=== PATIENT | female | born 1960 | race Caucasian/White ===

== ENCOUNTER 2020-02-18 08:05 | Outpatient (REF) | payer MEDICAID, SELFPAY | END 2020-02-18 08:06 | disposition home or self-care (01) | LOC: HO.LHD 08:05 | PROVIDERS: Visit Provider Internal Medicine | DX: Z13.89 Encounter for screening for other disorder (principal) ==

== ENCOUNTER 2022-01-06 15:55 | Inpatient (IN) | payer MEDICAID, SELFPAY ==
--- NOTE | ~2022-01-06 | CT_ITS ---
EXAMINATION: CT HEAD WITH CONTRAST CLINICAL INFORMATION: Rule out metastatic disease. COMPARISON: Head CT from 08/24/2012. TECHNIQUE: Contiguous axial imaging was performed from the skullbase to vertex following the intravenous administration of 80 mL Omnipaque 350. This CT examination was performed using dose optimization techniques as appropriate, variously including the following: *Automated exposure control *Adjustment of mA and/or kV according to patient size (this includes techniques or standardized protocols for targeted exams where dose is matched to indication/reason for exam; i.e. extremities or head) *Use of iterative reconstruction technique DLP: 923 mGy-cm. FINDINGS: There is no evidence of acute intracranial hemorrhage or territorial infarction. No abnormal mass effect or midline shift is seen. High to white matter differentiation is well preserved. No extra-axial fluid collections are identified. There is no abnormal enhancement. Generalized parenchymal volume loss evident with concordant ex vacuo prominence of the ventricles. There is no abnormal attenuation within the brain parenchyma. The osseous structures and soft tissues are normal. The mastoid air cells and visualized portions of the paranasal sinuses are well aerated. CT/CT head/brain w IV con IMPRESSION: No acute intracranial pathology. No CT findings of intracranial metastatic disease.
--- NOTE | ~2022-01-06 | XR_ITS ---
EXAMINATION: XR chest 1V CLINICAL INFORMATION: Reason for Exam SOB COMPARISON: Prior chest x-ray 01/03/2012 TECHNIQUE: XR chest 1V Tubes and lines: None Lungs and pleura: Newly developed opacification over the right suprahilar region/lung apex concerning for possible mass, fluid consolidation and/or atelectasis. Heart and mediastinum: The mediastinum is within normal limits.. Bones/soft tissue: Skeletal structures included are normal for patient's age. XR/XR chest 1V IMPRESSION: Opacification over the right upper lobe concerning for mass, consolidation atelectasis and pleural effusion. Would recommend correlation with follow-up contrast enhanced CT scan chest.
--- NOTE | ~2022-01-06 | CT_ITS ---
EXAMINATION: CT CHEST ANGIOGRAM PE PROTOCOL CLINICAL INFORMATION: , Reason for Exam SOB, tachycardia COMPARISON: None TECHNIQUE: Volumetric imaging was performed through the chest. Reformatted coronal and sagittal imaging was performed. 3-D MIP images performed at a dedicated separate workstation. This CT examination was performed using dose optimization techniques as appropriate, variously including the following: *Automated exposure control *Adjustment of mA and/or kV according to patient size (this includes techniques or standardized protocols for targeted exams where dose is matched to indication/reason for exam; i.e. extremities or head) *Use of iterative reconstruction technique CONTRAST: 65 mL Omnipaque 350 injected DLP: 212 FINDINGS: PULMONARY ARTERIES: There is proper opacification of the pulmonary artery and its main branches. No CT evidence of pulmonary emboli. LINES/TUBES: None LUNGS: There is delaney lobar pulmonary emphysema. There is a right suprahilar mass compressing on the right upper lobe bronchus, atelectasis of right upper lobe consolidation roughly 7.4 x 4.4 cm concerning for lung mass lesion with peripheral atelectasis, extend from the right hilum to the pleural surface and right lung apex. Further investigation of which is warranted, this would be amenable for transbronchial biopsy. Adjacent infiltrates in the right upper lobe and patchy interstitial infiltrate right lower lobe could be superimposed infection pneumonia versus lymphangitic spread. Left lung is relatively spared. PLEURA: There is no significant pleural effusion. MEDIASTINUM AND MARY: The visualized thyroid gland is unremarkable. Enlarged mediastinal pretracheal and subcarinal lymph nodes. Right hilar adenopathy. Left hilum is clear. VESSELS: Thoracic aorta is normal in size. HEART AND PERICARDIUM: Heart is normal in size. There is no pericardial effusion. There are coronary calcifications. CHEST WALL, LOWER NECK, SURROUNDING SOFT TISSUES: Normal VISUALIZED ABDOMEN: Unremarkable BONES: The visualized bony thorax is within normal limits. CT/CT angio chest PE protocol IMPRESSION: 1. No CT evidence of pulmonary emboli. 2. Right parahilar mass, compressing on the adjacent bronchus causing atelectasis of right upper lobe. The consolidation extending from the right hilum to the pleural surface right lung apex. This is suspicious for underlying neoplasm, given its central position, would be amenable for transbronchial biopsy for definitive diagnosis, PET/CT could be utilized.. 3. Adjacent right hilar and mediastinal lymphadenopathy. 4. Adjacent right upper and lower lobe patchy infiltrates, could be superimposed infection pneumonia versus lymphangitic spread. 5. Diffuse moderate to severe delaney lobar pulmonary disease edema. (Referring physician staff is being called, to be alerted of the above findings and recommendations.) KP
--- NOTE | ~2022-01-06 | CT_ITS ---
EXAMINATION: CT ABDOMEN AND PELVIS WITH CONTRAST CLINICAL INFORMATION: Question of metastatic disease COMPARISON: CT angiogram chest 01/07/2020 which demonstrated a right parahilar mass CT abdomen 12/09/2008 TECHNIQUE: Multidetector volumetric images were obtained from the superior aspect of the liver through the pubic symphysis following administration 85 mL of Omnipaque 350 intravenous contrast. Sagittal and coronal reformatted images were obtained on the technologist's workstation. Oral contrast: No This CT examination was performed using dose optimization techniques as appropriate, variously including the following: *Automated exposure control *Adjustment of mA and/or kV according to patient size (this includes techniques or standardized protocols for targeted exams where dose is matched to indication/reason for exam; i.e. extremities or head) *Use of iterative reconstruction technique DLP: 250 mGy-cm FINDINGS: LUNG BASES: There is worsening of right lower lobe consolidation LIVER, GALLBLADDER, AND BILIARY TREE: The liver is enlarged measuring 21 cm in greatest cephalocaudad dimension. No focal hepatic lesion or biliary ductal dilatation is present. The gallbladder is unremarkable with no evidence of radiopaque gallstones, gallbladder wall thickening, or obvious pericholecystic inflammatory changes. PANCREAS: Unremarkable. SPLEEN: Unremarkable. ADRENAL GLANDS: Unremarkable. KIDNEYS AND URETERS: The kidneys are normal in size, shape, and attenuation. Water density cortical hypodensities seen in the mid left kidney consistent with a tiny Bosniak class I renal cyst. No further imaging or follow-up is needed. No solid renal masses. No hydronephrosis, hydroureter, or calculi seen. No perinephric stranding. BLADDER: Unremarkable. Bilateral ureteral jets were noted. GASTROINTESTINAL TRACT: The small and large bowel are unremarkable. The appendix is unremarkable. ABDOMINAL WALL: No significant hernia is appreciated. LYMPH NODES: Normal. VASCULAR: Unremarkable. PELVIC VISCERA: Surgically absent OSSEOUS STRUCTURES: Mild degenerative changes in the spine. There is fusion from L4 through S1. No bony destructive lesions seen to suggest bone metastases. CT/CT abdomen pelvis w IV con IMPRESSION: No evidence of metastatic disease in the abdomen or pelvis. Incidental findings include worsening right lower lobe consolidation, hepatomegaly and degenerative changes in the spine Fleischner guidelines were followed.
[2022-01-06 16:06] VITALS: BP 136/70; BP 154/90; PULSE 143; RESP 21; TEMP 37.7; O2SAT 86; O2SAT 91; BMI 19.8
--- NOTE | 2022-01-06 16:08 | ECG_ITS ---
Test Reason : TACHYCARDIA Blood Pressure : / mmHG Vent. Rate : 000 BPM Atrial Rate : 000 BPM P-R Int : 000 ms QRS Dur : 000 ms QT Int : 000 ms P-R-T Axes : 000 000 000 degrees QTc Int : 000 ms No QRS complexes found, no ECG analysis possible When compared with ECG of 02-JAN-2012 18:13, Current undetermined rhythm precludes rhythm comparison, needs review Referred By: Natasha Henry Electronically Signed By:
--- NOTE | 2022-01-06 16:10 | ED_ITS ---
HPI - SOB/Dyspnea General Chief Complaint: Dyspnea Stated Complaint: SOB Time Seen by Provider: 01/06/22 16:08 Source: patient and EMS Mode of arrival: EMS History of Present Illness HPI Narrative: 61-year-old female with history of COPD, current everyday smoker, hyperlipidemia who presents via EMS for progressive shortening of breath over the past 3 days without associated chest pain / palpitations, although she does state I feel like my heart is racing and otherwise denies any fever, chills, sore throat, cough, increased sputum production. Patient states that she smoked her last cigarette 3 days ago when she began feeling more short of breath. Related Data Allergies Allergy/AdvReac Type Severity Reaction Status Date / Time acetaminophen Allergy Unknown Verified 04/01/13 00:00 [Tylenol-Codeine #3] codeine [CODEINE] Allergy Unknown RASH Unverified 12/30/19 15:07 Fish Containing Products Allergy Unknown SWELLING Unverified 12/30/19 15:07 lorazepam [From ATIVAN] Allergy Unknown SWELLING Unverified 12/30/19 15:07 meperidine [From DEMEROL] Allergy Unknown SWELLING Unverified 12/30/19 15:07 MULTIPLE MUSCLE RELAXORS Allergy Unknown DIFFICULTY Uncoded 12/30/19 15:07 BREATHING, HIVES all muscle relaxers Allergy Unknown Uncoded 04/01/13 00:00 compazene Allergy Unknown Uncoded 04/01/13 00:00 From COMPAZINE Allergy Unknown DIFFICULTY Uncoded 12/30/19 15:07 BREATHING,HIVES From FLEXERIL Allergy Unknown DIFFICULTY Uncoded 12/30/19 15:07 BREATHING, HIVES SEAFOOD Allergy Unknown DIFFICULTY Uncoded 12/30/19 15:07 BREATHING, RASH Review of Systems Review of Systems: Pertinent positives and negatives as stated in HPI 10 point review of systems is otherwise negative. [facility] Past Medical History Source: nursing notes reviewed Medical History High cholesterol Social History Social History Patient Tobacco Use Status: Current everyday Tobacco user Smoked in Last 30 Days: Yes Use of substances other than those prescribed or required for medical reasons: No Advance Directives: No Advance Directives Information Provided: No Physical Exam Vital Signs: Vital Signs: Last Vital Signs Temp 100.4 F 01/06/22 17:04 Pulse 111 H 01/06/22 17:57 Resp 20 01/06/22 17:57 BP 119/80 01/06/22 17:04 Pulse Ox 90 L 01/06/22 17:57 O2 Del Method 01/06/22 17:57 O2 Flow Rate 4 01/06/22 17:57 Oxygen Flow Rate 4 01/06/22 16:06 BMI result Body Mass Index 19.8 VITAL SIGNS: Reviewed. GENERAL: Well developed, well nourished, in no acute distress. HEAD: Normocephalic/atraumatic EYES: PERRLA, EOMI EARS: Ext canals without abnormality OROPHARYNX: no oral lesions noted, posterior pharynx clear NECK: Supple, no adenopathy LUNGS: Decreased breath sounds bilaterally, with tachypnea trace expiratory wheeze noted without rhonchi or crackles. SpO2<93> on 2 L of nasal cannula CARDIOVASCULAR: Regular rate and rhythm without noted murmurs, no JVD or lower extremity edema. ABDOMEN: Soft, non-tender, non-distended with bowel sounds. MUSCULOSKELETAL: No tenderness, deformities, or effusions noted on gross inspection. EXTREMITIES: No cyanosis, clubbing or edema. SKIN: Inspection of the skin reveals no rashes NEUROLOGIC: Alert and oriented x 4. Strength and sensation to light touch were grossly intact x 4. Course Course Course Narrative: 61-year-old female with history and clinical presentation most consistent with shortness of breath and will evaluate for possible COPD exacerbation, pneumonia, pneumothorax but less likely felt to be cardiac in etiology. Review of all investigations not consistent with COPD exacerbation, however patient is clearly short of breath and on review of imaging studies evidence of underlying pneumonia of but most compelling is the right lung mass which is abutting the right bronchus. All results discussed with the patient at bedside and this case was discussed with the inpatient hospitalist who Accepts admi ssion. MDM - SOB/Dyspnea Lab Data Result diagrams: 01/06/22 16:23 01/06/22 16:23 Labs: Lab Results 01/06/22 01/06/22 01/06/22 Range/Units 16:14 16:23 16:23 WBC 22.8 H (4.8-10.8) X10*3/uL RBC 4.83 (4.20-5.50) X10*6/uL Hgb 12.5 (12.0-16.0) g/dl Hct 37.5 (37.0-47.0) % MCV 77.6 L (80.0-98.0) fL MCH 25.9 L (27.0-33.0) pg MCHC 33.3 (31.0-35.0) g/dl RDW 14.0 (11.0-16.0) % Plt Count 415 H (160-400) X10*3/uL MPV 8.4 L (9.4-12.3) fL Immature Gran % (Auto) 0.5 H (0.0-0.4) % Neut % (Auto) 88.5 H (45-73) % Lymph % (Auto) 4.9 L (20-40) % [place] % (Auto) 5.3 (2-11) % Eos % (Auto) 0.4 (0-4) % Baso % (Auto) 0.4 (0-2) % Lymph # (Auto) 1.1 L (1.2-4.9) X10*3/uL [place] # (Auto) 1.2 (0.1-1.2) X10*3/uL Eos # (Auto) 0.1 (0.0-0.4) X10*3/uL Baso # (Auto) 0.1 (0.0-0.2) X10*3/uL Abs Immat Gran (auto) 0.12 H (0.00-0.03) X10*3/uL Absolute Neuts (auto) 20.2 H (2.0-8.3) x10*3/uL Absolute Nucleated RBC 0.000 (0.0-0.012) X10*3/uL Nucleated RBC % (auto) 0.0 (0.0-0.2) /100WBC Smear Tech's Comments VERIFIED VBG pH VBG pCO2 VBG pO2 VBG HCO3 VBG O2 Saturation VBG Base Excess Sodium 130 L (135-145) mmol/L Potassium 3.8 (3.3-5.1) mmol/L Chloride 95 L (96-108) mmol/L Carbon Dioxide 20 L (22-29) mmol/L Anion Gap 19 (12-20) BUN 11 (9-16) mg/dL Creatinine 0.76 (0.5-1.4) mg/dL Estim Creat Clear Calc 63.9 Estimated GFR > 60 Random Glucose 164 H (60-115) mg/dL Lactic Acid (0.5-2.0) mmol/L Calcium 9.0 (8.4-10.2) mg/dL Magnesium 1.6 (1.6-2.6) mg/dL Total Bilirubin 0.7 (0.0-1.0) mg/dL AST 14 (5-31) U/L ALT 12 (0-31) U/L Alkaline Phosphatase 92 (39-117) U/L Troponin I High Sens (<3.5-17.0) ng/L B-Natriuretic Peptide (<100) pg/mL Total Protein 7.1 (6.5-8.0) g/dL Albumin 4.2 (3.5-5.0) g/dL COVID-19 (EMILY) Negative (Negative) COVID-19 Clin Com See Note 01/06/22 01/06/22 01/06/22 Range/Units 16:23 16:24 16:24 WBC (4.8-10.8) X10*3/uL RBC (4.20-5.50) X10*6/uL Hgb (12.0-16.0) g/dl Hct (37.0-47.0) % MCV (80.0-98.0) fL MCH (27.0-33.0) pg MCHC (31.0-35.0) g/dl RDW (11.0-16.0) % Plt Count (160-400) X10*3/uL MPV (9.4-12.3) fL Immature Gran % (Auto) (0.0-0.4) % Neut % (Auto) (45-73) % Lymph % (Auto) (20-40) % [place] % (Auto) (2-11) % Eos % (Auto) (0-4) % Baso % (Auto) (0-2) % Lymph # (Auto) (1.2-4.9) X10*3/uL [place] # (Auto) (0.1-1.2) X10*3/uL Eos # (Auto) (0.0-0.4) X10*3/uL Baso # (Auto) (0.0-0.2) X10*3/uL Abs Immat Gran (auto) (0.00-0.03) X10*3/uL Absolute Neuts (auto) (2.0-8.3) x10*3/uL Absolute Nucleated RBC (0.0-0.012) X10*3/uL Nucleated RBC % (auto) (0.0-0.2) /100WBC Smear Tech's Comments VBG pH Cancelled VBG pCO2 Cancelled VBG pO2 Cancelled VBG HCO3 Cancelled VBG O2 Saturation Cancelled VBG Base Excess Cancelled Sodium (135-145) mmol/L Potassium (3.3-5.1) mmol/L Chloride (96-108) mmol/L Carbon Dioxide (22-29) mmol/L Anion Gap (12-20) BUN (9-16) mg/dL Creatinine (0.5-1.4) mg/dL Estim Creat Clear Calc Estimated GFR Random Glucose (60-115) mg/dL Lactic Acid 1.6 (0.5-2.0) mmol/L Calcium (8.4-10.2) mg/dL Magnesium (1.6-2.6) mg/dL Total Bilirubin (0.0-1.0) mg/dL AST (5-31) U/L ALT (0-31) U/L Alkaline Phosphatase (39-117) U/L Troponin I High Sens 7.5 (<3.5-17.0) ng/L B-Natriuretic Peptide 78 (<100) pg/mL Total Protein (6.5-8.0) g/dL Albumin (3.5-5.0) g/dL COVID-19 (EMILY) (Negative) COVID-19 Clin Com 01/06/22 Range/Units 16:29 WBC (4.8-10.8) X10*3/uL RBC (4.20-5.50) X10*6/uL Hgb (12.0-16.0) g/dl Hct (37.0-47.0) % MCV (80.0-98.0) fL MCH (27.0-33.0) pg MCHC (31.0-35.0) g/dl RDW (11.0-16.0) % Plt Count (160-400) X10*3/uL MPV (9.4-12.3) fL Immature Gran % (Auto) (0.0-0.4) % Neut % (Auto) (45-73) % Lymph % (Auto) (20-40) % [place] % (Auto) (2-11) % Eos % (Auto) (0-4) % Baso % (Auto) (0-2) % Lymph # (Auto) (1.2-4.9) X10*3/uL [place] # (Auto) (0.1-1.2) X10*3/uL Eos # (Auto) (0.0-0.4) X10*3/uL Baso # (Auto) (0.0-0.2) X10*3/uL Abs Immat Gran (auto) (0.00-0.03) X10*3/uL Absolute Neuts (auto) (2.0-8.3) x10*3/uL Absolute Nucleated RBC (0.0-0.012) X10*3/uL Nucleated RBC % (auto) (0.0-0.2) /100WBC Smear Tech's Comments VBG pH 7.46 H VBG pCO2 26 VBG pO2 42 VBG HCO3 18 L VBG O2 Saturation 72.0 VBG Base Excess -3.3 Sodium (135-145) mmol/L Potassium (3.3-5.1) mmol/L Chloride (96-108) mmol/L Carbon Dioxide (22-29) mmol/L Anion Gap (12-20) BUN (9-16) mg/dL Creatinine (0.5-1.4) mg/dL Estim Creat Clear Calc Estimated GFR Random Glucose (60-115) mg/dL Lactic Acid (0.5-2.0) mmol/L Calcium (8.4-10.2) mg/dL Magnesium (1.6-2.6) mg/dL Total Bilirubin (0.0-1.0) mg/dL AST (5-31) U/L ALT (0-31) U/L Alkaline Phosphatase (39-117) U/L Troponin I High Sens (<3.5-17.0) ng/L B-Natriuretic Peptide (<100) pg/mL Total Protein (6.5-8.0) g/dL Albumin (3.5-5.0) g/dL COVID-19 (EMILY) (Negative) COVID-19 Clin Com ECG Data Attestation: I personally reviewed and interpreted this ECG as follows: Prior ECG tracings: available for review Interpretation: Sinus tachycardia, HR- 136, no STEMI, IL /QRS / QTC is within normal limits. Critical Care Time Critical Care Time Critical Care Time: Yes Total Critical Care Time: 30 Attestation: I personally attest to this time spent taking care of the patient. Discharge Plan Discharge Clinical Impression: Mass of right lung, Hypoxia, Pneumonia Patient Disposition: Admitted As Inpatient
[2022-01-06] MEDS: methylPREDNISolone Sod Succ 125 MG/2 ML VIAL IVPUSH (16:28)
[2022-01-06 16:32] LABS: Basophils Absolute Auto 0.1 X10*3/uL (0.0-0.2); Basophils Percent Auto 0.4 % (0-2); Eosinophils Absolute Auto 0.1 X10*3/uL (0.0-0.4); Eosinophils Percent Auto 0.4 % (0-4); Hematocrit 37.5 % (37.0-47.0); Hemoglobin 12.5 g/dl (12.0-16.0); Imm Gran Abs Auto 0.12 X10*3/uL (0.00-0.03); Imm Gran Pct Auto 0.5 % (0.0-0.4); Lymphocytes Absolute Auto 1.1 X10*3/uL (1.2-4.9); Lymphocytes Percent Auto 4.9 % (20-40); MANUAL DIFF FLAG SCAN; Mean Corpuscular HGB Conc 33.3 g/dl (31.0-35.0); Mean Corpuscular Hemoglobin 25.9 pg (27.0-33.0); Mean Corpuscular Volume 77.6 fL (80.0-98.0); Mean Platelet Volume 8.4 fL (9.4-12.3); Monocytes Absolute Auto 1.2 X10*3/uL (0.1-1.2); Monocytes Percent Auto 5.3 % (2-11); Neutrophils Absolute Auto 20.2 x10*3/uL (2.0-8.3); Neutrophils Percent Auto 88.5 % (45-73); Platelet Count 415 X10*3/uL (160-400); Red Blood Count 4.83 X10*6/uL (4.20-5.50); SCAN SMEAR FLAG 1; White Blood Count 22.8 X10*3/uL (4.8-10.8)
[2022-01-06 16:34] LABS: VBG Base Excess -3.3 mmol/L; VBG HCO3 18 mmol/L (22-26); VBG pCO2 26 mmHg; VBG pH 7.46 (7.32-7.43); VBG pO2 42 mmHg
[2022-01-06 16:36] LABS: Venous Blood Gas Refer to POC result
[2022-01-06 16:43] LABS: Lactic Acid 1.6 mmol/L (0.5-2.0)
[2022-01-06 16:48] LABS: Alanine Aminotransferase 12 U/L (0-31); Albumin Level 4.2 g/dL (3.5-5.0); Alkaline Phosphatase 92 U/L (39-117); Anion Gap 19 (12-20); Aspartate Amino Transferase 14 U/L (5-31); Bilirubin Total 0.7 mg/dL (0.0-1.0); Blood Urea Nitrogen 11 mg/dL (9-16); Carbon Dioxide 20 mmol/L (22-29); Chloride 95 mmol/L (96-108); Creatinine Clr Calc Pharmacy 63.9; Estimated Glomerular Filt Rate > 60; Glucose Random 164 mg/dL (60-115); Potassium 3.8 mmol/L (3.3-5.1); Sodium 130 mmol/L (135-145); Total Protein 7.1 g/dL (6.5-8.0)
[2022-01-06 16:55] LABS: B Type Natriuretic Peptide 78 pg/mL (<100); Troponin-I High Sensitivity 7.5 ng/L (<3.5-17.0)
[2022-01-06 17:01] LABS: COVID-19 Test Negative (Negative); IDNOW Serial# 16C4AD1C
[2022-01-06] MEDS: 0.9 % Sodium Chloride 1,000 ML 999 ML IV (17:02)
[2022-01-06 17:04] VITALS: BP 119/80; PULSE 141; RESP 24; TEMP 38; O2SAT 97
[2022-01-06 17:06] LABS: SLIDE REVIEW VERIFIED
[2022-01-06] MEDS: Acetaminophen 325 MG TABLET 975 MG PO (17:18)
[2022-01-06] MEDS: Piperacillin Sodium/Tazobactam 3.375 GM in 0.9 % Sodium Chloride 50 ML IV (17:18)
[2022-01-06 17:50] LABS: Magnesium 1.6 mg/dL (1.6-2.6)
[2022-01-06 17:57] VITALS: PULSE 111; RESP 20; O2SAT 90
[2022-01-06] MEDS: iohexoL 350 MG/ML 100 ML INFUS..BTL IV (17:59)
--- NOTE | 2022-01-06 19:25 | P.HPHOSP_ITS ---
History of Present Illness Date of Service: 01/06/22 Chief Complaint: Shortness of breath This is a 61-year-old female with a pertinent history of tobacco use disorder, chronic back pain status post lumbar fusion surgeries, mixed hyperlipidemia, COPD not on home inhalers or home oxygen who presents to the emergency department for evaluation of shortness of breath. Patient states she started having progressively worsening shortness of breath 3 days prior to presentation. She does not ambulate and uses an electric wheelchair due to chronic back pain. No orthopnea, PND or leg swelling. Does have questionable history of CHF and was prescribed Lasix but does not take it. States the shortness of breath was without any relieving factors. Also had associated chills. Patient denies chest discomfort, palpitations, abdominal pain, headache, changes in urinary or bowel habits. States she has been smoking half a pack of cigarettes since age of 18. Has never been hospitalized for dyspnea as per the patient. Did have benign tumor of the uterus and has had hysterectomy. No other personal history of cancer, has never received chemotherapy or radiation. In the emergency department, patient was found to be febrile 100.[address] scan was concerning for right parahilar mass and hospitalist treasure newton consulted for admission Review of Systems Review of Systems: All 13 review of systems are negative except as noted in HPI [facility] Medical History Chronic back pain High cholesterol Hyperlipidemia Tobacco use Functional capacity: wheelchair bound Patient : No Surgical History H/O: hysterectomy History of lumbar fusion Social History Patient Tobacco Use Status: Current everyday Tobacco user Smoked in Last 30 Days: Yes Use of substances other than those prescribed or required for medical reasons: No Advance Directives: No Advance Directives Information Provided: No Patient : No Ebola Risk: Travel/Contact With Anyone From Affected Area/s: No Has Patient Experienced Ebola Symptoms: No Meds Allergies Allergy/AdvReac Type Severity Reaction Status Date / Time acetaminophen Allergy Unknown Verified 04/01/13 00:00 [Tylenol-Codeine #3] codeine [CODEINE] Allergy Unknown RASH Unverified 12/30/19 15:07 Fish Containing Products Allergy Unknown SWELLING Unverified 09/17/20 15:07 lorazepam [From ATIVAN] Allergy Unknown SWELLING Unverified 12/30/19 15:07 meperidine [From DEMEROL] Allergy Unknown SWELLING Unverified 12/30/19 15:07 MULTIPLE MUSCLE RELAXORS Allergy Unknown DIFFICULTY Uncoded 12/30/19 15:07 BREATHING, HIVES all muscle relaxers Allergy Unknown Uncoded 04/01/13 00:00 compazene Allergy Unknown Uncoded 04/01/13 00:00 From COMPAZINE Allergy Unknown DIFFICULTY Uncoded 12/30/19 15:07 BREATHING,HIVES From FLEXERIL Allergy Unknown DIFFICULTY Uncoded 12/30/19 15:07 BREATHING, HIVES SEAFOOD Allergy Unknown DIFFICULTY Uncoded 12/30/19 15:07 BREATHING, RASH Active Medications: Current Medications Ceftriaxone Sodium 2 gm/ (Sodium Chloride) 50 mls @ 100 mls/hr IV DAILY [facility] Azithromycin 500 mg/ Sodium (Chloride) 250 mls @ 125 mls/hr IV DAILY [facility] Pharmacy Consult (Consult Rx Perform Med Rec) 1 each MISCELLANE ONCE STA Stop: 01/06/22 19:04 Physical Exam Vital Signs and Narrative: Vital Signs: Last Vital Signs Temp 100.4 F 01/06/22 17:04 Pulse 111 H 01/06/22 17:57 Resp 20 01/06/22 17:57 BP 119/80 01/06/22 17:04 Pulse Ox 90 L 01/06/22 17:57 O2 Del Method 01/06/22 17:57 O2 Flow Rate 4 01/06/22 17:57 Oxygen Flow Rate 4 01/06/22 16:06 BMI result Body Mass Index 19.8 Middle-aged female lying in bed in no distress Neck supple, no JVD Tachycardic with regular rhythm, S1-S2 heard Right-sided crackles, no wheezing appreciated Abdomen soft nontender, no guarding, no rigidity Patient is awake, alert and oriented to self, place, time and person ; no focal motor deficit Psych: Normal mood No pedal edema Results Labs CBC and Chem 7: 01/06/22 16:23 01/06/22 16:23 Labs: Laboratory Results - last 24 hr 01/06/22 01/06/22 01/06/22 16:14 16:23 16:23 MCV 77.6 L MCH 25.9 L MCHC 33.3 RDW 14.0 Plt Count 415 H MPV 8.4 L Immature Gran % (Auto) 0.5 H Neut % (Auto) 88.5 H Lymph % (Auto) 4.9 L [place] % (Auto) 5.3 Eos % (Auto) 0.4 Baso % (Auto) 0.4 Lymph # (Auto) 1.1 L [place] # (Auto) 1.2 Eos # (Auto) 0.1 Baso # (Auto) 0.1 Abs Immat Gran (auto) 0.12 H Absolute Neuts (auto) 20.2 H Absolute Nucleated RBC 0.000 Nucleated RBC % (auto) 0.0 Smear Tech's Comments VERIFIED VBG pH VBG pCO2 VBG pO2 VBG HCO3 VBG O2 Saturation VBG Base Excess Anion Gap 19 Estim Creat Clear Calc 63.9 Estimated GFR > 60 Random Glucose 164 H Lactic Acid Calcium 9.0 Magnesium 1.6 Total Bilirubin 0.7 AST 14 ALT 12 Alkaline Phosphatase 92 B-Natriuretic Peptide Total Protein 7.1 Albumin 4.2 COVID-19 (EMILY) Negative COVID-19 Clin Com See Note 01/06/22 01/06/22 01/06/22 16:23 16:24 16:24 MCV MCH MCHC RDW Plt Count MPV Immature Gran % (Auto) Neut % (Auto) Lymph % (Auto) [place] % (Auto) Eos % (Auto) Baso % (Auto) Lymph # (Auto) [place] # (Auto) Eos # (Auto) Baso # (Auto) Abs Immat Gran (auto) Absolute Neuts (auto) Absolute Nucleated RBC Nucleated RBC % (auto) Smear Tech's Comments VBG pH Cancelled VBG pCO2 Cancelled VBG pO2 Cancelled VBG HCO3 Cancelled VBG O2 Saturation Cancelled VBG Base Excess Cancelled Anion Gap Estim Creat Clear Calc Estimated GFR Random Glucose Lactic Acid 1.6 Calcium Magnesium Total Bilirubin AST ALT Alkaline Phosphatase B-Natriuretic Peptide 78 Total Protein Albumin COVID-19 (EMILY) COVID-19 [employer] Com 01/06/22 16:29 MCV MCH MCHC RDW Plt Count MPV Immature Gran % (Auto) Neut % (Auto) Lymph % (Auto) [place] % (Auto) Eos % (Auto) Baso % (Auto) Lymph # (Auto) [place] # (Auto) Eos # (Auto) Baso # (Auto) Abs Immat Gran (auto) Absolute Neuts (auto) Absolute Nucleated RBC Nucleated RBC % (auto) Smear Tech's Comments VBG pH 7.46 H VBG pCO2 26 VBG pO2 42 VBG HCO3 18 L VBG O2 Saturation 72.0 VBG Base Excess -3.3 Anion Gap Estim Creat Clear Calc Estimated GFR Random Glucose Lactic Acid Calcium Magnesium Total Bilirubin AST ALT Alkaline Phosphatase B-Natriuretic Peptide Total Protein Albumin COVID-19 (EMILY) COVID-19 Clin Com Imaging Radiologist's Impressions: Impressions Chest X-Ray 01/06/22 17:00 IMPRESSION: Opacification over the right upper lobe concerning for mass, consolidation atelectasis and pleural effusion. Would recommend correlation with follow-up contrast enhanced CT scan chest. Chest CTA 01/06/22 18:01 IMPRESSION: 1. No CT evidence of pulmonary emboli. 2. Right parahilar mass, compressing on the adjacent bronchus causing atelectasis of right upper lobe. The consolidation extending from the right hilum to the pleural surface right lung apex. This is suspicious for underlying neoplasm, given its central position, would be amenable for transbronchial biopsy for definitive diagnosis, PET/CT could be utilized.. 3. Adjacent right hilar and mediastinal lymphadenopathy. 4. Adjacent right upper and lower lobe patchy infiltrates, could be superimposed infection pneumonia versus lymphangitic spread. 5. Diffuse moderate to severe delaney lobar pulmonary disease edema. (Referring physician staff is being called, to be alerted of the above findings and recommendations.) KP Assessment and Plan (1) Hypoxia: Status: Acute (2) Mass of right lung: Status: Acute (3) Chronic back pain: Status: Acute (4) Hyperlipidemia: Status: Acute (5) Tobacco use: Status: Acute Plan This is a 61-year-old female with a pertinent history of tobacco use disorder, chronic back pain status post lumbar fusion surgeries, mixed hyperlipidemia, COPD not on home inhalers or home oxygen who presents to the emergency department for evaluation of shortness of breath. #. Acute hypoxemic respiratory failure in the setting of: #. Right parahilar mass -suspicious for underlying neoplasm in patient with significant tobacco use d isorder. currently on 4 L supplemental oxygen. Monitor and wean as tolerated, maintain oxygen saturation greater than 92%. Cannot rule out superimposed bacterial infectious process in a patient with fever, leukocytosis and ?cough. Will initiate empiric CAP coverage. Also obtaining CT scan of the abdomen, pelvis and head to complete workup. Consulting pulmonology in the morning. #. Chronic back pain -continue home gabapentin #. Mixed hyperlipidemia -continue home statin #. Tobacco use disorder DVT prophylaxis: Lovenox 40 mg daily Diet: Low-salt diet Full code Patient will require two night minimum hospital stay for evaluation of right hilar mass suspicious for neoplasm and need for O2 Quality Stroke Does the patient have a stroke diagnosis?: No VTE Prior VTE?: No VTE Risk Level:: Medical - moderate - high VTE Device Contraindication: Treatment Not Indicated VTE Drug Contraindication: N/A - Med Ordered
--- NOTE | 2022-01-06 19:29 | PC.NURSE ---
assumed care of pt at 1900 - report received from Jena VILLEGAS. pt resting comfortably on stretcher, wearing 4L O2 NC, no apparent distress. pt to be admitted to hospital. will continue to [facility]
[2022-01-06 19:57] VITALS: BP 117/61; PULSE 100; RESP 20; TEMP 36.3; O2SAT 89
--- NOTE | 2022-01-06 20:04 | PC.NURSE ---
pt 87-89% O2 on 4.5L NC. pt willing to try wearing oxymask - pt placed on oxymask 6L , O2 up to 91%. will continue to monitor... no current complaints. pt broke fever, temp down to 97.4.
[2022-01-06] MEDS: Melatonin 3 MG TABLET 6 MG PO (21:17)
[2022-01-06] MEDS: Gabapentin 600 MG TABLET PO (21:17)
[2022-01-06] MEDS: cefTRIAXone sodium 2 GM in 0.9 % Sodium Chloride 50 ML IV (21:17)
[2022-01-06] MEDS: 0.9 % Sodium Chloride 1,000 ML 100 ML IVCONT (21:18)
[2022-01-06] MEDS: Enoxaparin Sodium 40 MG/0.4 ML SYRINGE SUBCUT (21:18)
[2022-01-06] MEDS: ondansetron HCL 4 MG/2 ML VIAL IVPUSH (21:57)
[2022-01-06 21:58] LABS: Iron 14 mcg/dL (30-160); Percent Iron Saturation 5 % (15-50); Total Iron Binding Capacity 288 mcg/dL (228-428); Unsaturated Iron Binding 274 ug/dL
[2022-01-06] MEDS: Azithromycin 500 MG in 0.9 % Sodium Chloride 250 ML 125 MG IV (22:01)
[2022-01-06 23:15] VITALS: BP 91/53; PULSE 79; RESP 19; TEMP 36.3; O2SAT 93
[2022-01-07 00:45] VITALS: BP 94/59; PULSE 70; RESP 20; O2SAT 94
[2022-01-07 04:52] LABS: Basophils Percent Auto 0.2 % (0-2); Hematocrit 33.2 % (37.0-47.0); Hemoglobin 11.3 g/dl (12.0-16.0); Imm Gran Pct Auto 0.6 % (0.0-0.4); Lymphocytes Absolute Auto 0.9 X10*3/uL (1.2-4.9); Lymphocytes Percent Auto 5.4 % (20-40); MANUAL DIFF FLAG SCAN; Mean Corpuscular Hemoglobin 26.7 pg (27.0-33.0); Mean Corpuscular Volume 78.5 fL (80.0-98.0); Mean Platelet Volume 8.6 fL (9.4-12.3); Monocytes Absolute Auto 0.5 X10*3/uL (0.1-1.2); Monocytes Percent Auto 2.8 % (2-11); Neutrophils Absolute Auto 15.7 x10*3/uL (2.0-8.3); Platelet Count 343 X10*3/uL (160-400); Red Blood Count 4.23 X10*6/uL (4.20-5.50); Red Cell Distribution Width 14.1 % (11.0-16.0); SCAN SMEAR FLAG 1; White Blood Count 17.2 X10*3/uL (4.8-10.8)
[2022-01-07 04:55] VITALS: BP 91/59; PULSE 77; RESP 20; O2SAT 89
[2022-01-07 04:57] LABS: SLIDE REVIEW VERIFIED
[2022-01-07 05:15] LABS: Anion Gap 14 (12-20); Blood Urea Nitrogen 8 mg/dL (9-16); Calcium 8.3 mg/dL (8.4-10.2); Carbon Dioxide 19 mmol/L (22-29); Chloride 110 mmol/L (96-108); Creatinine Clr Calc Pharmacy 86.7; Estimated Glomerular Filt Rate > 60; Glucose Random 158 mg/dL (60-115); Potassium 3.7 mmol/L (3.3-5.1); Sodium 139 mmol/L (135-145)
[2022-01-07 06:17] VITALS: BP 92/55; RESP 20; O2SAT 91
[2022-01-07] MEDS: Gabapentin 600 MG TABLET PO ×2 (07:37→22:23)
[2022-01-07] MEDS: 0.9 % Sodium Chloride Flush 3 ML SYRINGE IVFLUSH (07:37)
[2022-01-07] MEDS: Atorvastatin Calcium 80 MG TABLET PO ×2 (07:37→08:52)
[2022-01-07 07:38] VITALS: BP 128/69; PULSE 90; RESP 19; O2SAT 91
--- NOTE | 2022-01-07 07:54 | PHA.MEDREC ---
Pharmacy Consult ? Medication Reconciliation Pharmacy has completed the medication reconciliation. Patient was an excellent historian. Patient takes both dilaudid and oxycotin BID scheduled, she takes them together.
[2022-01-07] MEDS: Omeprazole 20 MG CAPSULE.DR PO (08:52)
[2022-01-07] MEDS: oxyCODONE HCl ER 10 MG TAB.ER.12H PO ×2 (08:52→22:57)
[2022-01-07] MEDS: diazePAM 2 MG TABLET PO ×2 (10:03→22:57)
--- NOTE | 2022-01-07 12:29 | HO.PM.IMPN ---
Subjective Subjective Date of Service: 01/07/22 Interval History: the patient was seen and evaluated this morning Laying in bed, feels anxious about the diagnosis of cancer The report improving shortness of breath No reported other overnight events. Systemic review: No fever, chills or weakness No chest pain, palpitation Improvement in shortness of breath and coughing No abdominal pain, nausea or vomiting No urinary symptoms No any rash or wounds Physical Exam Vital Signs: Vital Signs: Last Vital Signs Temp 97.3 F 01/06/22 23:15 Pulse 90 01/07/22 07:38 Resp 19 01/07/22 07:38 BP 128/69 01/07/22 07:38 Pulse Ox 91 L 01/07/22 07:38 O2 Del Method 01/07/22 07:38 O2 Flow Rate 4.5 01/07/22 07:38 Oxygen Flow Rate 4 01/06/22 16:06 BMI result Body Mass Index 19.8 Const: Other: Constitutional : Alert, oriented, not in distress Neck : Normal inspection, Supple Cardiovascular : RRR, no JVP, no lower extremity edema Respiratory : fair bilateral air entry, basilar right-sided crackles, no wheezes or rhonchi Gastrointestinal: soft, lax, Normal bowel sounds, Non tender Skin : Warm, Dry Neurological : Alert & oriented x3, No focal deficit , CN 2-12 within normal Objective Data Active Medications Acetaminophen (Acetaminophen 325 Mg Tablet) 650 mg PO Q6H PRN PRN Reason: Pain, Mild (Pain Scale 1-3) Acetaminophen/Butalbital/Caffeine (Butalb/Acetamin/Caff 50/325/40 Tablet) 1 tab PO Q6H PRN PRN Reason: Migraine Headache Albuterol Sulfate (Albuterol Sulfate 90 Mcg 8 Gm Inhaler) 2 puff INHALE Q4H PRN PRN Reason: wheezing Albuterol/Ipratropium (Albuterol/Iprat 2.5/0.5mg 3 Ml Ampul.Neb) 3 ml INHALE Q4H PRN PRN Reason: Wheezing Atorvastatin Calcium (Atorvastatin Calcium 80 Mg Tablet) 80 mg PO DAILY [facility] Last Admin: 01/07/22 08:52 Dose: 80 mg Documented By: RACHELLE Atorvastatin Calcium (Atorvastatin Calcium 80 Mg Tablet) 80 mg PO DAILY [facility] Last Admin: 01/07/22 08:55 Dose: Not Given Documented By: RACHELLE Non-Admin Reason: Duplicate Order Diazepam (Diazepam 2 Mg Tablet) 2 mg PO TID PRN PRN Reason: anxiety/restlessness Last Admin: 01/07/22 10:03 Dose: 2 mg Documented By: SELIN Enoxaparin Sodium (Enoxaparin Sodium 40 Mg/0.4 Ml Syringe) 40 mg SUBCUT Q24H [facility] Last Admin: 01/06/22 21:18 Dose: 40 mg Documented By: SARANYA Gabapentin (Gabapentin 600 Mg Tablet) 600 mg PO BID [facility] Last Admin: 01/07/22 07:37 Dose: 600 mg Documented By: SELIN Hydromorphone HCl (Hydromorphone Hcl 4 Mg Tablet) 4 mg PO BID [facility] Last Admin: 01/07/22 10:01 Dose: 4 mg Documented By: SELIN Ceftriaxone Sodium 2 gm/ (Sodium Chloride) 50 mls @ 100 mls/hr IV Q24H [facility] Last Infusion: 01/06/22 21:47 Dose: 0 mls/hr Documented By: SARANYA Azithromycin 500 mg/ Sodium (Chloride) 250 mls @ 125 mls/hr IV Q24H [facility] Last Infusion: 01/07/22 00:47 Dose: 0 mls/hr Documented By: SARANYA Melatonin (Melatonin 3 Mg Tablet) 6 mg PO BEDTIME PRN PRN Reason: Insomnia Last Admin: 01/06/22 21:17 Dose: 6 mg Documented By: SARANYA Melatonin (Melatonin 3 Mg Tablet) 9 mg PO BEDTIME PRN PRN Reason: Insomnia Omeprazole (Omeprazole 20 Mg Capsule.) 20 mg PO DAILY@0630 [facility] Last Admin: 01/07/22 08:52 Dose: 20 mg Documented By: RACHELLE Ondansetron HCl (Ondansetron Hcl 4 Mg/2 Ml Vial) 4 mg IVPUSH Q8H PRN PRN Reason: Nausea and Vomiting Last Admin: 01/06/22 21:57 Dose: 4 mg Documented By: SARANYA Oxycodone HCl (Oxycodone Hcl Er 10 Mg Tab.Er.12h) 10 mg PO BID [facility] Last Admin: 01/07/22 08:52 Dose: 10 mg Documented By: HO.TOCHIC Sodium Chloride (0.9 % Sodium Chloride Flush 3 Ml Syringe) 3 ml IVFLUSH QSHIFT [facility] Last Admin: 01/07/22 07:37 Dose: 3 ml Documented By: SELIN Labs CBC & Chem 7: 01/07/22 04:41 01/07/22 04:41 Labs: Laboratory Results - last 24 hr 01/06/22 01/06/22 01/06/22 16:14 16:23 16:23 MCV 77.6 L MCH 25.9 L MCHC 33.3 RDW 14.0 Plt Count 415 H MPV 8.4 L Immature Gran % (Auto) 0.5 H Neut % (Auto) 88.5 H Lymph % (Auto) 4.9 L Bland % (Auto) 5.3 Eos % (Auto) 0.4 Baso % (Auto) 0.4 Lymph # (Auto) 1.1 L Bland # (Auto) 1.2 Eos # (Auto) 0.1 Baso # (Auto) 0.1 Abs Immat Gran (auto) 0.12 H Absolute Neuts (auto) 20.2 H Absolute Nucleated RBC 0.000 Nucleated RBC % (auto) 0.0 Smear Tech's Comments VERIFIED VBG pH VBG pCO2 VBG pO2 VBG HCO3 VBG O2 Saturation VBG Base Excess Anion Gap 19 Estim Creat Clear Calc 63.9 Estimated GFR > 60 Random Glucose 164 H Lactic Acid Calcium 9.0 Magnesium 1.6 Iron TIBC % Saturation Unsat Iron Binding Total Bilirubin 0.7 AST 14 ALT 12 Alkaline Phosphatase 92 B-Natriuretic Peptide Total Protein 7.1 Albumin 4.2 COVID-19 (EMILY) Negative COVID-19 Clin Com See Note 01/06/22 01/06/22 01/06/22 16:23 16:24 16:24 MCV MCH MCHC RDW Plt Count MPV Immature Gran % (Auto) Neut % (Auto) Lymph % (Auto) Bland % (Auto) Eos % (Auto) Baso % (Auto) Lymph # (Auto) Bland # (Auto) Eos # (Auto) Baso # (Auto) Abs Immat Gran (auto) Absolute Neuts (auto) Absolute Nucleated RBC Nucleated RBC % (auto) Smear Tech's Comments VBG pH Cancelled VBG pCO2 Cancelled VBG pO2 Cancelled VBG HCO3 Cancelled VBG O2 Saturation Cancelled VBG Base Excess Cancelled Anion Gap Estim Creat Clear Calc Estimated GFR Random Glucose Lactic Acid 1.6 Calcium Magnesium Iron TIBC % Saturation Unsat Iron Binding Total Bilirubin AST ALT Alkaline Phosphatase B-Natriuretic Peptide 78 Total Protein Albumin COVID-19 (EMILY) COVID-19 Clin Com 01/06/22 01/06/22 01/07/22 16:29 21:27 04:41 MCV 78.5 L MCH 26.7 L MCHC 34.0 RDW 14.1 Plt Count 343 MPV 8.6 L Immature Gran % (Auto) 0.6 H Neut % (Auto) 91.0 H Lymph % (Auto) 5.4 L Bland % (Auto) 2.8 Eos % (Auto) 0.0 Baso % (Auto) 0.2 Lymph # (Auto) 0.9 L Bland # (Auto) 0.5 Eos # (Auto) 0.0 Baso # (Auto) 0.0 Abs Immat Gran (auto) 0.10 H Absolute Neuts (auto) 15.7 H Absolute Nucleated RBC 0.000 Nucleated RBC % (auto) 0.0 Smear Tech's Comments VERIFIED VBG pH 7.46 H VBG pCO2 26 VBG pO2 42 VBG HCO3 18 L VBG O2 Saturation 72.0 VBG Base Excess -3.3 Anion Gap Estim Creat Clear Calc Estimated GFR Random Glucose Lactic Acid Calcium Magnesium Iron 14 L TIBC 288 % Saturation 5 L Unsat Iron Binding 274 Total Bilirubin AST ALT Alkaline Phosphatase B-Natriuretic Peptide Total Protein Albumin COVID-19 (EMILY) COVID-19 Clin Com 01/07/22 04:41 MCV MCH MCHC RDW Plt Count MPV Immature Gran % (Auto) Neut % (Auto) Lymph % (Auto) Bland % (Auto) Eos % (Auto) Baso % (Auto) Lymph # (Auto) Bland # (Auto) Eos # (Auto) Baso # (Auto) Abs Immat Gran (auto) Absolute Neuts (auto) Absolute Nucleated RBC Nucleated RBC % (auto) Smear Tech's Comments VBG pH VBG pCO2 VBG pO2 VBG HCO3 VBG O2 Saturation VBG Base Excess Anion Gap 14 Estim Creat Clear Calc 86.7 Estimated GFR > 60 Random Glucose 158 H Lactic Acid Calcium 8.3 L D Magnesium Iron TIBC % Saturation Unsat Iron Binding Total Bilirubin AST ALT Alkaline Phosphatase B-Natriuretic Peptide Total Protein Albumin COVID-19 (EMILY) COVID-19 Clin Com Assessment and Plan (1) Mass of right lung: Status: Acute (2) Pneumonia: Status: Acute (3) Hypoxia: Status: Acute Plan This is a 61-year-old female with a pertinent history of tobacco use disorder, chronic back pain status post lumbar fusion surgeries, mixed hyperlipidemia, COPD not on home inhalers or home oxygen who presents to the emergency department for evaluation of shortness of breath. # Acute hypoxemic respiratory failure 2/2 postobstructive pneumonia 2/2 Right parahilar mass Concerning for underlying malignancy currently on 4 L supplemental oxygen, wean down as tolerated n Continue IV antibiotics Pending cultures Pulmonology input appreciated, to do bronchoscopy tomorrow Keep NPO after midnight obtaining CT scan of the abdomen, pelvis and head to complete workup #. Chronic back pain continue home gabapentin, Dilaudid and oxycodone #. Mixed hyperlipidemia continue home statin #. Tobacco use disorder Advised to quit DVT prophylaxis: SCD Patient will require overnight hospital stay for evaluation of right hilar mass suspicious for neoplasm and need for O2 and treatment of infection to prevent possible decompensation into sepsis. Quality Stroke Does the patient have a stroke diagnosis?: No VTE Prior VTE?: No VTE Risk Level:: Medical - moderate - high VTE Device Contraindication: Treatment Not Indicated VTE Drug Contraindication: N/A - Med Ordered
--- NOTE | 2022-01-07 13:05 | P.CDIC_ITS ---
CDI Concurrent Query Documentation Clarification: PHYSICIAN'S DOCUMENTATION REQUEST Date of Query: 01/07/22 [id number] Patient Name: Bhavya Paiz Admit Date: 01/06/22 Dear Doctor, A review of the medical record indicates additional documentation may be needed. Please review below and update the documentation accordingly. Clinical Indicators Risk Factors/Clinical Indicators/Treatments LAB FINDINGS: 01/06 - sodium 3.0 L IV fluids Based on the above, could you clarify in the Progress Notes the appropriate diagnosis, if significant, that supports the above abnormalities and additional evaluation, monitoring, and/or treatment rendered: * Hyponatremia or other etiology of lab findings * Labs indicate a diagnosis of (please specify) * Other (please specify) * Unable to determine Use of terms such as suspected, likely, concern for, or probable (associated with a specific diagnosis that is being evaluated, monitored, or treated as if it exists) are acceptable and can be coded in the inpatient setting, when documented at the time of discharge. Thank you, Tawanna Mendez [facility], CDIS Extension: [phone] Please use your independent medical judgment in providing your response. THIS QUERY IS PART OF THE PERMANENT MEDICAL RECORD Provider Response: Other Other Diagnosis: wrong documentation
--- NOTE | 2022-01-07 13:12 | P.CONPL_ITS ---
History of Present Illness History of Present Illness Consult date: 01/07/22 Requesting physician: Napoleon Kim Chief complaint: Hypoxia Narrative: 61-year-old lady, active 30+ pack-year smoker admitted on 01/06/[address] chest noted to have right suprahilar mass with compression of the right mainstem bronchus. She was started on empiric antibiotics for postobstructive pneumonia and pulmonary evaluation was requested. She does have underlying history of uterine tumor status post hysterectomy. Review of Systems Constitutional: Constitutional: Denies daytime sleepiness, Denies excessive sweating, Denies fatigue, Denies fever(s), Denies lethargy, Denies malaise, Denies night sweats, Denies snoring and Denies weight loss Eyes: Eyes: Denies blurry vision and Denies itchy eyes ENT: Denies nasal congestion, Denies post nasal drip, Denies sinus pain, De nies sinus pressure and Denies other ( Thrush) Cardiovascular: Cardiovascular: Denies chest pain, Denies pedal edema, Reports dyspnea, Reports dyspnea on exertion, Denies orthopnea and Denies paroxysmal nocturnal dyspnea Respiratory: Respiratory: Denies cough, Denies hemoptysis, Denies excessive phlegm production, Reports dyspnea, Reports dyspnea on exertion, Denies snoring and Denies wheezing Gastrointestinal: Gastrointestinal: Denies abdominal pain and Denies heartburn Musculoskeletal: Musculoskeletal: Denies myalgias, Denies arthralgias and Denies joint swelling Integumentary/Breasts: Skin/Breast: Denies rash Neurologic: Denies memory loss and Denies seizure-like activity Psychiatric: Psychiatric: Denies abnormal sleep pattern, Denies anxiety and Denies memory loss Endocrine: Endocrine: Denies excessive sweating, Denies fatigue and Denies heat intolerance Hematologic/Lymphatic: Hematologic/Lymphatic: Denies easy bruising Allergic/Immunologic: Allergic/Immunologic: Denies itchy eyes, Denies seasonal rhinorrhea and Denies wheezing PMFSH Past Medical History Medical History Chronic back pain High cholesterol Hyperlipidemia Tobacco use Functional capacity: wheelchair bound Surgical History Surgical History H/O: hysterectomy History of lumbar fusion Social History Social History Patient Tobacco Use Status: Current everyday Tobacco user Smoked in Last 30 Days: Yes Use of substances other than those prescribed or required for medical reasons: No Advance Directives: No Advance Directives Information Provided: No Patient : No Travel History Ebola Risk: Travel/Contact With Anyone From Affected Area/s: No Has Patient Experienced Ebola Symptoms: No Meds Allergies Allergy/AdvReac Type Severity Reaction Status Date / Time acetaminophen Allergy Unknown Verified 04/01/13 00:00 [Tylenol-Codeine #3] codeine [CODEINE] Allergy Unknown RASH Unverified 12/30/19 15:07 Fish Containing Products Allergy Unknown SWELLING Unverified 12/30/19 15:07 lorazepam [From ATIVAN] Allergy Unknown SWELLING Unverified 12/30/19 15:07 meperidine [From DEMEROL] Allergy Unknown SWELLING Unverified 12/30/19 15:07 MULTIPLE MUSCLE RELAXORS Allergy Unknown DIFFICULTY Uncoded 12/30/19 15:07 BREATHING, HIVES all muscle relaxers Allergy Unknown Uncoded 04/01/13 00:00 compazene Allergy Unknown Uncoded 04/01/13 00:00 From COMPAZINE Allergy Unknown DIFFICULTY Uncoded 12/30/19 15:07 BREATHING,HIVES From FLEXERIL Allergy Unknown DIFFICULTY Uncoded 12/30/19 15:07 BREATHING, HIVES SEAFOOD Allergy Unknown DIFFICULTY Uncoded 12/30/19 15:07 BREATHING, RASH Active Medications: Current Medications Acetaminophen (Acetaminophen 325 Mg Tablet) 650 mg PO Q6H PRN PRN Reason: Pain, Mild (Pain Scale 1-3) Acetaminophen/Butalbital/Caffeine (Butalb/Acetamin/Caff 50/325/40 Tablet) 1 tab PO Q6H PRN PRN Reason: Migraine Headache Albuterol Sulfate (Albuterol Sulfate 90 Mcg 8 Gm Inhaler) 2 puff INHALE Q4H PRN PRN Reason: wheezing Albuterol/Ipratropium (Albuterol/Iprat 2.5/0.5mg 3 Ml Ampul.Neb) 3 ml INHALE Q4H PRN PRN Reason: Wheezing Atorvastatin Calcium (Atorvastatin Calcium 80 Mg Tablet) 80 mg PO DAILY [facility] Last Admin: 01/07/22 08:52 Dose: 80 mg Atorvastatin Calcium (Atorvastatin Calcium 80 Mg Tablet) 80 mg PO DAILY [facility] Last Admin: 01/07/22 08:55 Dose: Not Given Diazepam (Diazepam 2 Mg Tablet) 2 mg PO TID PRN PRN Reason: anxiety/restlessness Last Admin: 01/07/22 10:03 Dose: 2 mg Gabapentin (Gabapentin 600 Mg Tablet) 600 mg PO BID [facility] Last Admin: 01/07/22 07:37 Dose: 600 mg Hydromorphone HCl (Hydromorphone Hcl 4 Mg Tablet) 4 mg PO BID [facility] Last Admin: 01/07/22 10:01 Dose: 4 mg Ceftriaxone Sodium 2 gm/ (Sodium Chloride) 50 mls @ 100 mls/hr IV Q24H [facility] Last Infusion: 01/06/22 21:47 Dose: Infused Azithromycin 500 mg/ Sodium (Chloride) 250 mls @ 125 mls/hr IV Q24H [facility] Last Infusion: 01/07/22 00:47 Dose: Infused Melatonin (Melatonin 3 Mg Tablet) 6 mg PO BEDTIME PRN PRN Reason: Insomnia Last Admin: 01/06/22 21:17 Dose: 6 mg Melatonin (Melatonin 3 Mg Tablet) 9 mg PO BEDTIME PRN PRN Reason: Insomnia Omeprazole (Omeprazole 20 Mg Capsule.Dr) 20 mg PO DAILY@0630 [facility] Last Admin: 01/07/22 08:52 Dose: 20 mg Ondansetron HCl (Ondansetron Hcl 4 Mg/2 Ml Vial) 4 mg IVPUSH Q8H PRN PRN Reason: Nausea and Vomiting Last Admin: 01/06/22 21:57 Dose: 4 mg Oxycodone HCl (Oxycodone Hcl Er 10 Mg Tab.Er.12h) 10 mg PO BID [facility] Last Admin: 01/07/22 08:52 Dose: 10 mg Sodium Chloride (0.9 % Sodium Chloride Flush 3 Ml Syringe) [facility] Last Admin: 01/07/22 07:37 Dose: 3 ml Home Medications Medication Instructions Recorded Confirmed Last Taken Type albuterol sulfate 90 mcg/actuation 2 puff inhalation Q4H PRN wheezing 01/07/22 01/07/22 Unknown History aerosol inhaler (ProAir HFA) atorvastatin 80 mg tablet 1 tab PO DAILY 01/07/22 01/07/22 01/06/22 History [id number] 1 tab PO Q6H PRN Migraine Headache 01/07/22 01/07/22 Unknown History 50 mg-325 mg-40 mg tablet hydromorphone 4 mg tablet 4 mg PO BID 01/07/22 01/07/22 01/06/22 History melatonin 10 mg tablet 10 mg PO BEDTIME PRN Insomnia 01/07/22 01/07/22 01/06/22 History omeprazole 20 mg capsule,delayed 1 cap PO DAILY 01/07/22 01/07/22 01/06/22 History release oxycodone 10 mg tablet,crush 1 tab PO BID 01/07/22 01/07/22 01/06/22 History resistant,extended release 12 hr (OxyContin) Physical Exam Vital Signs: Vital Signs: Last Vital Signs Temp 97.3 F 01/06/22 23:15 Pulse 90 01/07/22 07:38 Resp 19 01/07/22 07:38 BP 128/69 01/07/22 07:38 Pulse Ox 91 L 01/07/22 07:38 O2 Del Method 01/07/22 07:38 O2 Flow Rate 4.5 01/07/22 07:38 Oxygen Flow Rate 4 01/06/22 16:06 BMI result Body Mass Index 19.8 Const: General: no acute distress and alert Nutritional Appearance: not obese Orientation/consciousness: Other orientation findings ( oriented) HEENT: Head: Yes atraumatic Mouth: no other ( thrush) Throat: No postnasal drainage Eyes: General: appearance normal, both eyes and all related structures Sclerae: sclerae normal EOM: EOMs intact bilaterally Neck: Neck: Yes supple Lymphatic: no lymphadenopathy noted Resp: Effort & Inspection: normal respiratory effort and no use of accessory muscles Auscultation: other (Right upper crackles) Cardio: Rate: regular rate Rhythm: regular rhythm Heart sounds: no gallops, no murmurs and no rubs GI: Palpation (GI): Soft to palpation and Other GI palpation findings present ( nontender) Skin: General skin exam: other ( warm) Rashes: no rashes Extrem: General: No clubbing, No cyanosis and No edema Results Laboratory Findings CBC and BMP: 01/07/22 04:41 01/07/22 04:41 Abnormal lab findings: Abnormal Labs 01/06/22 01/06/22 01/06/22 16:23 16:23 16:29 WBC 22.8 H Hgb Hct MCV 77.6 L MCH 25.9 L Plt Count 415 H MPV 8.4 L Immature Gran % (Auto) 0.5 H Neut % (Auto) 88.5 H Lymph % (Auto) 4.9 L Lymph # (Auto) 1.1 L Abs Immat Gran (auto) 0.12 H Absolute Neuts (auto) 20.2 H VBG pH 7.46 H VBG HCO3 18 L Sodium 130 L Chloride 95 L Carbon Dioxide 20 L BUN Random Glucose 164 H Calcium Iron % Saturation 01/06/22 01/07/22 01/07/22 21:27 04:41 04:41 WBC 17.2 H Hgb 11.3 L Hct 33.2 L MCV 78.5 L MCH 26.7 L Plt Count MPV 8.6 L Immature Gran % (Auto) 0.6 H Neut % (Auto) 91.0 H Lymph % (Auto) 5.4 L Lymph # (Auto) 0.9 L Abs Immat Gran (auto) 0.10 H Absolute Neuts (auto) 15.7 H VBG pH VBG HCO3 Sodium Chloride 110 H Carbon Dioxide 19 L BUN 8 L Random Glucose 158 H Calcium 8.3 L D Iron 14 L % Saturation 5 L Assessment and Plan (1) COPD (chronic obstructive pulmonary disease): Status: Acute (2) Acute respiratory failure with hypoxia: Status: Acute (3) Mass of right lung: Status: Acute (4) Postobstructive pneumonia: Status: Acute Plan Impression: 61-year-old lady with underlying COPD admitted with what appears to be postobstructive pneumonia secondary to right suprahilar mass. Recommendations: Agree with empiric coverage for postobstructive pneumonia. Will plan for flexible bronchoscopy with likely endobronchial biopsy tomorrow. Keep NPO overnight. Procedures Date of Service Date of Service: 01/07/22
--- NOTE | 2022-01-07 15:30 | MHC.CM.PN ---
Met with patient and niece in regards to dischrage planning. Patient lives alone, uses a wheelchair for mobility and had AEROSPACE TECHNICIAN hours throug [facility]. PCP verified. HCP completed, signed and witnessed. Original given to patient at discharge. Patient received 3 Pfizer vaccines. Patient is currently on oxygen but does not use it at baseline. Patient's daughter or niece will transport her home when medically stable. Continue to monitor for d/c needs.
[2022-01-07 16:00] VITALS: BP 140/64; PULSE 110; RESP 20; TEMP 36.6; O2SAT 96
[2022-01-07 20:30] VITALS: BP 114/56; PULSE 79; RESP 20; O2SAT 100
[2022-01-07] MEDS: Azithromycin 500 MG in 0.9 % Sodium Chloride 250 ML 125 MG IV (22:20)
[2022-01-07] MEDS: cefTRIAXone sodium 2 GM in 0.9 % Sodium Chloride 50 ML IV (22:21)
[2022-01-07] MEDS: Melatonin 3 MG TABLET 9 MG PO (22:42)
[2022-01-07] MEDS: Melatonin 3 MG TABLET 6 MG PO (22:42)
[2022-01-08] VITALS (11 sets, daily range): BP systolic 100–144; BP diastolic 58–88; PULSE 84–103; RESP 15–20; TEMP 36.3–36.8; O2SAT 91–100; BMI 19.8
[2022-01-08] MEDS: 0.9 % Sodium Chloride Flush 3 ML SYRINGE IVFLUSH ×4 (00:19→22:41)
[2022-01-08] MEDS: Omeprazole 20 MG CAPSULE.DR PO (05:53)
--- NOTE | 2022-01-08 06:40 | PC.NURSE ---
PT PUT ON BEDSIDE COMMODE PT REFUSED GETTING CHANGED OVER INTO A GOWN RN AWARE. PT GIVEN WARM BLANET AND CALL BRAVO
[2022-01-08 07:27] LABS: Hematocrit 32.4 % (37.0-47.0); Hemoglobin 10.6 g/dl (12.0-16.0); Mean Corpuscular HGB Conc 32.7 g/dl (31.0-35.0); Mean Corpuscular Hemoglobin 25.9 pg (27.0-33.0); Mean Corpuscular Volume 79.2 fL (80.0-98.0); Platelet Count 408 X10*3/uL (160-400); Red Blood Count 4.09 X10*6/uL (4.20-5.50); Red Cell Distribution Width 14.5 % (11.0-16.0); White Blood Count 16.7 X10*3/uL (4.8-10.8)
[2022-01-08 07:43] LABS: Anion Gap 14 (12-20); Blood Urea Nitrogen 7 mg/dL (9-16); Calcium 8.2 mg/dL (8.4-10.2); Carbon Dioxide 24 mmol/L (22-29); Chloride 105 mmol/L (96-108); Creatinine Clr Calc Pharmacy 83.7; Estimated Glomerular Filt Rate > 60; Glucose Random 88 mg/dL (60-115); Potassium 3.7 mmol/L (3.3-5.1); Sodium 139 mmol/L (135-145)
[2022-01-08] MEDS: Gabapentin 600 MG TABLET PO ×2 (09:38→21:37)
[2022-01-08] MEDS: diazePAM 2 MG TABLET PO ×3 (09:38→21:45)
[2022-01-08] MEDS: Atorvastatin Calcium 80 MG TABLET PO (09:38)
[2022-01-08] MEDS: oxyCODONE HCl ER 10 MG TAB.ER.12H PO ×2 (09:39→21:37)
[2022-01-08] MEDS: Ferrous Sulfate 324 MG TABLET.DR PO (09:39)
--- NOTE | 2022-01-08 10:07 | HO.PM.IMPN ---
Subjective Subjective Date of Service: 01/08/22 Interval History: The patient was seen and evaluated this morning Refused to do CT scans, feels anxious about the diagnosis of cancer and the impending bronchoscopy Reports improving shortness of breath No reported other overnight events. Systemic review: No fever, chills or weakness No chest pain, palpitation Improvement in shortness of breath and coughing No abdominal pain, nausea or vomiting No urinary symptoms No any rash or wounds Physical Exam Vital Signs: Vital Signs: Last Vital Signs Temp 97.3 F 01/08/22 06:24 Pulse 90 01/08/22 06:24 Resp 15 01/08/22 06:24 BP 114/59 L 01/08/22 06:24 Pulse Ox 93 01/08/22 06:24 O2 Del Method Non-Rebreather Ma sk 01/08/22 06:24 O2 Flow Rate 2 01/08/22 06:24 Oxygen Flow Rate 4 01/06/22 16:06 BMI result Body Mass Index 19.8 Const: Other: Constitutional : Alert, oriented, not in distress Neck : Normal inspection, Supple Cardiovascular : RRR, no JVP, no lower extremity edema Respiratory : fair bilateral air entry, basilar right-sided crackles, no wheezes or rhonchi, on oxygen supplement Gastrointestinal: soft, lax, Normal bowel sounds, Non tender Skin : Warm, Dry Neurological : Alert & oriented x3, No focal deficit Objective Data Active Medications Acetaminophen (Acetaminophen 325 Mg Tablet) 650 mg PO Q6H PRN PRN Reason: Pain, Mild (Pain Scale 1-3) Acetaminophen/Butalbital/Caffeine (Butalb/Acetamin/Caff 50/325/40 Tablet) 1 tab PO Q6H PRN PRN Reason: Migraine Headache Albuterol Sulfate (Albuterol Sulfate 90 Mcg 8 Gm Inhaler) 2 puff INHALE Q4H PRN PRN Reason: wheezing Albuterol/Ipratropium (Albuterol/Iprat 2.5/0.5mg 3 Ml Ampul.Neb) 3 ml INHALE Q4H PRN PRN Reason: Wheezing Atorvastatin Calcium (Atorvastatin Calcium 80 Mg Tablet) 80 mg PO DAILY [facility] Last Admin: 01/08/22 09:38 Dose: 80 mg Documented By: RHODA Atorvastatin Calcium (Atorvastatin Calcium 80 Mg Tablet) 80 mg PO DAILY [facility] Last Admin: 01/08/22 09:40 Dose: Not Given Documented By: RHODA Non-Admin Reason: duplicate Diazepam (Diazepam 2 Mg Tablet) 2 mg PO TID PRN PRN Reason: anxiety/restlessness Last Admin: 01/08/22 09:38 Dose: 2 mg Documented By: RHODA Ferrous Sulfate (Ferrous Sulfate 324 Mg Tablet.) 324 mg PO DAILY [facility] Last Admin: 01/08/22 09:39 Dose: 324 mg Documented By: RHODA Gabapentin (Gabapentin 600 Mg Tablet) 600 mg PO BID [facility] Last Admin: 01/08/22 09:38 Dose: 600 mg Documented By: RHODA Hydromorphone HCl (Hydromorphone Hcl 4 Mg Tablet) 4 mg PO BID [facility] Last Admin: 01/08/22 09:38 Dose: 4 mg Documented By: RHODA Ceftriaxone Sodium 2 gm/ (Sodium Chloride) 50 mls @ 100 mls/hr IV Q24H [facility] Last Infusion: 01/08/22 03:32 Dose: 100 mls/hr Documented By: MARILU Azithromycin 500 mg/ Sodium (Chloride) 250 mls @ 125 mls/hr IV Q24H [facility] Last Infusion: 01/08/22 03:32 Dose: 125 mls/hr Documented By: MARILU Melatonin (Melatonin 3 Mg Tablet) 6 mg PO BEDTIME PRN PRN Reason: Insomnia Last Admin: 01/07/22 22:42 Dose: 6 mg Documented By: MARILU Melatonin (Melatonin 3 Mg Tablet) 9 mg PO BEDTIME PRN PRN Reason: Insomnia Last Admin: 01/07/22 22:42 Dose: 9 mg Documented By: MARILU Omeprazole (Omeprazole 20 Mg Capsule.) 20 mg PO DAILY@0630 [facility] Last Admin: 01/08/22 05:53 Dose: 20 mg Documented By: MARILU Ondansetron HCl (Ondansetron Hcl 4 Mg/2 Ml Vial) 4 mg IVPUSH Q8H PRN PRN Reason: Nausea and Vomiting Last Admin: 01/06/22 21:57 Dose: 4 mg Documented By: SARANYA Oxycodone HCl (Oxycodone Hcl Er 10 Mg Tab.Er.12h) 10 mg PO BID [facility] Last Admin: 01/08/22 09:39 Dose: 10 mg Documented By: RHODA Sodium Chloride (0.9 % Sodium Chloride Flush 3 Ml Syringe) 3 ml IVFLUSH QSHIFT [facility] Last Admin: 01/08/22 09:37 Dose: 3 ml Documented By: RHODA Labs CBC & Chem 7: 01/08/22 06:46 01/08/22 06:46 Labs: Laboratory Results - last 24 hr 01/08/22 01/08/22 06:46 06:46 MCV 79.2 L MCH 25.9 L MCHC 32.7 RDW 14.5 Plt Count 408 H MPV 9.0 L Absolute Nucleated RBC 0.000 Nucleated RBC % (auto) 0.0 Anion Gap 14 Estim Creat Clear Calc 83.7 Estimated GFR > 60 Random Glucose 88 Calcium 8.2 L Microbiology Microbiology Results: Microbiology 01/06/22 16:45 Blood Culture - Preliminary Blood - Venous No growth after 24 hours. 01/06/22 16:23 Blood Culture - Preliminary Blood - Venous No growth after 24 hours. Assessment and Plan (1) Postobstructive pneumonia: Status: Acute (2) Acute respiratory failure with hypoxia: Status: Acute (3) Mass of right lung: Status: Acute Plan This is a 61-year-old female with a pertinent history of tobacco use disorder, chronic back pain status post lumbar fusion surgeries, mixed hyperlipidemia, COPD not on home inhalers or home oxygen who presents to the emergency department for evaluation of shortness of breath. # Acute hypoxemic respiratory failure 2/2 postobstructive pneumonia 2/2 Right parahilar mass Improving Weaning oxygen down to 2 L, continue as tolerated Concerning for underlying malignancy, plan for bronchoscopy today Continue IV antibiotics Pending cultures Pulmonology input appreciated, to do bronchoscopy obtaining CT scan of the abdomen, pelvis and head to complete workup, patient agreed to do # Chronic back pain continue home gabapentin, Dilaudid and oxycodone # Mixed hyperlipidemia continue home statin # Tobacco use disorder Advised to quit Start nicotine patch DVT prophylaxis: SCD Patient will require overnight hospital stay for evaluation of right hilar mass suspicious for neoplasm and need for O2 and treatment of infection to prevent possible decompensation into sepsis. Quality Stroke Does the patient have a stroke diagnosis?: No VTE Prior VTE?: No VTE Risk Level:: Medical - moderate - high VTE Device Contraindication: Treatment Not Indicated VTE Drug Contraindication: N/A - Med Ordered
[2022-01-08] MEDS: iohexoL 350 MG/ML 100 ML INFUS..BTL 85 ML IV (11:32)
--- NOTE | 2022-01-08 12:37 | PC.NURSE ---
Alert and oriented. C/o lower back pain, medicated per MAR with good effect. VSS, afebrile, no acute resp. distress noted. weaned oxygen down to 2L via oxymask, sat between 96-98%. Ct scan completed, results pending. Remained NPO. Off the floor to OR for biopsy.
--- NOTE | 2022-01-08 13:01 | HO.ANESPROP2 ---
[facility] Active Problems Active Problems: All Active Problems (Updated 01/07/22 @ 13:15 by Long Olivia MD) Postobstructive pneumonia (Acute) Acute respiratory failure with hypoxia (Acute) COPD (chronic obstructive pulmonary disease) (Acute) Pneumonia (Acute) Mass of right lung (Acute) Hypoxia (Acute) History of lumbar fusion (Acute) H/O: hysterectomy (Acute) Chronic back pain (Acute) Hyperlipidemia (Acute) Tobacco use (Acute) Past Medical History Medical History Chronic back pain High cholesterol Hyperlipidemia Tobacco use Functional capacity: wheelchair bound Family History Family history of problems with anesthesia: No Surgical History Surgical History H/O: hysterectomy History of lumbar fusion History of Problems with Anesthesia: No Social History Social History Patient Tobacco Use Status: Current everyday Tobacco user Tobacco use type: Cigarette Cigarettes Per Day: 10 Years Smoked: 43 Smoked in Last 30 Days: Yes Use of substances other than those prescribed or required for medical reasons: No Are you DNR?: No Advance Directives: No Advance Directives Information Provided: No Patient : No service: No Current occupational status: disabled Meds Allergies Allergy/AdvReac Type Severity Reaction Status Date / Time acetaminophen Allergy Unknown Swelling Verified 01/08/22 12:46 [Tylenol-Codeine #3] codeine [CODEINE] Allergy Unknown RASH Verified 01/08/22 12:46 Fish Containing Products Allergy Unknown SWELLING Verified 01/08/22 12:46 lorazepam [From ATIVAN] Allergy Unknown SWELLING Verified 01/08/22 12:46 meperidine [From DEMEROL] Allergy Unknown SWELLING Verified 01/08/22 12:46 diphenhydramine Allergy Swelling Verified 01/08/22 12:46 [From Benadryl] MULTIPLE MUSCLE RELAXORS Allergy Unknown DIFFICULTY Uncoded 12/30/19 15:07 BREATHING, HIVES From COMPAZINE Allergy Unknown DIFFICULTY Uncoded 12/30/19 15:07 BREATHING,HIVES From FLEXERIL Allergy Unknown DIFFICULTY Uncoded 12/30/19 15:07 BREATHING, HIVES SEAFOOD Allergy Unknown DIFFICULTY Uncoded 12/30/19 15:07 BREATHING, RASH Active Medications: Current Medications Acetaminophen (Acetaminophen 325 Mg Tablet) 650 mg PO Q6H PRN PRN Reason: Pain, Mild (Pain Scale 1-3) Acetaminophen/Butalbital/Caffeine (Butalb/Acetamin/Caff 50/325/40 Tablet) 1 tab PO Q6H PRN PRN Reason: Migraine Headache Albuterol Sulfate (Albuterol Sulfate 90 Mcg 8 Gm Inhaler) 2 puff INHALE Q4H PRN PRN Reason: wheezing Albuterol/Ipratropium (Albuterol/Iprat 2.5/0.5mg 3 Ml Ampul.Neb) 3 ml INHALE Q4H PRN PRN Reason: Wheezing Atorvastatin Calcium (Atorvastatin Calcium 80 Mg Tablet) 80 mg PO DAILY [facility] Last Admin: 01/08/22 09:38 Dose: 80 mg Atorvastatin Calcium (Atorvastatin Calcium 80 Mg Tablet) 80 mg PO DAILY [facility] Last Admin: 01/08/22 09:40 Dose: Not Given Diazepam (Diazepam 2 Mg Tablet) 2 mg PO TID PRN PRN Reason: anxiety/restlessness Last Admin: 01/08/22 09:38 Dose: 2 mg Ferrous Sulfate (Ferrous Sulfate 324 Mg Tablet.) 324 mg PO DAILY [facility] Last Admin: 01/08/22 09:39 Dose: 324 mg Gabapentin (Gabapentin 600 Mg Tablet) 600 mg PO BID [facility] Last Admin: 01/08/22 09:38 Dose: 600 mg Hydromorphone HCl (Hydromorphone Hcl 4 Mg Tablet) 4 mg PO BID [facility] Last Admin: 01/08/22 09:38 Dose: 4 mg Ceftriaxone Sodium 2 gm/ (Sodium Chloride) 50 mls @ 100 mls/hr IV Q24H [facility] Last Infusion: 01/08/22 03:32 Dose: Infused Azithromycin 500 mg/ Sodium (Chloride) 250 mls @ 125 mls/hr IV Q24H [facility] Last Infusion: 01/08/22 03:32 Dose: Infused Melatonin (Melatonin 3 Mg Tablet) 6 mg PO BEDTIME PRN PRN Reason: Insomnia Last Admin: 01/07/22 22:42 Dose: 6 mg Melatonin (Melatonin 3 Mg Tablet) 9 mg PO BEDTIME PRN PRN Reason: Insomnia Last Admin: 01/07/22 22:42 Dose: 9 mg Nicotine (Nicotine 14 Mg Patch.Td24) 14 mg TRANSDERMA DAILY [facility] Last Admin: 01/08/22 10:56 Dose: Not Given Omeprazole (Omeprazole 20 Mg Capsule.) 20 mg PO DAILY@0630 [facility] Last Admin: 01/08/22 05:53 Dose: 20 mg Ondansetron HCl (Ondansetron Hcl 4 Mg/2 Ml Vial) 4 mg IVPUSH Q8H PRN PRN Reason: Nausea and Vomiting Last Admin: 01/06/22 21:57 Dose: 4 mg Oxycodone HCl (Oxycodone Hcl Er 10 Mg Tab.Er.12h) 10 mg PO BID [facility] Last Admin: 01/08/22 09:39 Dose: 10 mg Sodium Chloride (0.9 % Sodium Chloride Flush 3 Ml Syringe) 3 ml IVFLUSH QSHIFT [facility] Last Admin: 01/08/22 09:37 Dose: 3 ml Home Medications Medication Instructions Recorded Confirmed Last Taken Type albuterol sulfate 90 mcg/actuation 2 puff inhalation Q4H PRN wheezing 01/07/22 01/07/22 Unknown History aerosol inhaler (ProAir HFA) atorvastatin 80 mg tablet 1 tab PO DAILY 01/07/22 01/07/22 01/06/22 History [id number] 1 tab PO Q6H PRN Migraine Headache 01/07/22 01/07/22 Unknown History 50 mg-325 mg-40 mg tablet hydromorphone 4 mg tablet 4 mg PO BID 01/07/22 01/07/22 01/06/22 History melatonin 10 mg tablet 10 mg PO BEDTIME PRN Insomnia 01/07/22 01/07/22 01/06/22 History omeprazole 20 mg capsule,delayed 1 cap PO DAILY 01/07/22 01/07/22 01/06/22 History release oxycodone 10 mg tablet,crush 1 tab PO BID 01/07/22 01/07/22 01/06/22 History resistant,extended release 12 hr (OxyContin) Exam Exam Date and Time: January 08, 2022 1301 Height,Weight and Vital Signs: Height 5 ft 3 in Weight 50.802 kg Last Vital Signs Temp 98.3 F 01/08/22 12:51 Pulse 85 01/08/22 12:51 Resp 16 01/08/22 12:51 BP 144/88 H 01/08/22 12:51 Pulse Ox 98 01/08/22 12:51 O2 Del Method 01/08/22 12:51 O2 Flow Rate 2 01/08/22 12:51 Oxygen Flow Rate 4 01/06/22 16:06 Pertinent Lab Results Pertinent Lab Results: Laboratory Tests 01/06/22 01/06/22 01/06/22 16:14 16:23 16:23 WBC 22.8 H RBC 4.83 Hgb 12.5 Hct 37.5 MCV 77.6 L MCH 25.9 L MCHC 33.3 RDW 14.0 Plt Count 415 H MPV 8.4 L Immature Gran % (Auto) 0.5 H Neut % (Auto) 88.5 H Lymph % (Auto) 4.9 L [place] % (Auto) 5.3 Eos % (Auto) 0.4 Baso % (Auto) 0.4 Lymph # (Auto) 1.1 L [place] # (Auto) 1.2 Eos # (Auto) 0.1 Baso # (Auto) 0.1 Abs Immat Gran (auto) 0.12 H Absolute Neuts (auto) 20.2 H Absolute Nucleated RBC 0.000 Nucleated RBC % (auto) 0.0 Smear Tech's Comments VERIFIED VBG pH VBG pCO2 VBG pO2 VBG HCO3 VBG O2 Saturation VBG Base Excess Sodium 130 L Potassium 3.8 Chloride 95 L Carbon Dioxide 20 L Anion Gap 19 BUN 11 Creatinine 0.76 Estim Creat Clear Calc 63.9 Estimated GFR > 60 Random Glucose 164 H Lactic Acid Calcium 9.0 Magnesium 1.6 Iron TIBC % Saturation Unsat Iron Binding Total Bilirubin 0.7 AST 14 ALT 12 Alkaline Phosphatase 92 Troponin I High Sens B-Natriuretic Peptide Total Protein 7.1 Albumin 4.2 COVID-19 (EMILY) Negative COVID-19 Clin Com See Note 01/06/22 01/06/22 01/06/22 16:23 16:24 16:24 WBC RBC Hgb Hct MCV MCH MCHC RDW Plt Count MPV Immature Gran % (Auto) Neut % (Auto) Lymph % (Auto) [place] % (Auto) Eos % (Auto) Baso % (Auto) Lymph # (Auto) [place] # (Auto) Eos # (Auto) Baso # (Auto) Abs Immat Gran (auto) Absolute Neuts (auto) Absolute Nucleated RBC Nucleated RBC % (auto) Smear Tech's Comments VBG pH Cancelled VBG pCO2 Cancelled VBG pO2 Cancelled VBG HCO3 Cancelled VBG O2 Saturation Cancelled VBG Base Excess Cancelled Sodium Potassium Chloride Carbon Dioxide Anion Gap BUN Creatinine Estim Creat Clear Calc Estimated GFR Random Glucose Lactic Acid 1.6 Calcium Magnesium Iron TIBC % Saturation Unsat Iron Binding Total Bilirubin AST ALT Alkaline Phosphatase Troponin I High Sens 7.5 B-Natriuretic Peptide 78 Total Protein Albumin COVID-19 (EMILY) COVID-19 Clin Com 01/06/22 01/06/22 01/07/22 16:29 21:27 04:41 WBC 17.2 H RBC 4.23 Hgb 11.3 L Hct 33.2 L MCV 78.5 L MCH 26.7 L MCHC 34.0 RDW 14.1 Plt Count 343 MPV 8.6 L Immature Gran % (Auto) 0.6 H Neut % (Auto) 91.0 H Lymph % (Auto) 5.4 L [place] % (Auto) 2.8 Eos % (Auto) 0.0 Baso % (Auto) 0.2 Lymph # (Auto) 0.9 L [place] # (Auto) 0.5 Eos # (Auto) 0.0 Baso # (Auto) 0.0 Abs Immat Gran (auto) 0.10 H Absolute Neuts (auto) 15.7 H Absolute Nucleated RBC 0.000 Nucleated RBC % (auto) 0.0 Smear Tech's Comments VERIFIED VBG pH 7.46 H VBG pCO2 26 VBG pO2 42 VBG HCO3 18 L VBG O2 Saturation 72.0 VBG Base Excess -3.3 Sodium Potassium Chloride Carbon Dioxide Anion Gap BUN Creatinine Estim Creat Clear Calc Estimated GFR Random Glucose Lactic Acid Calcium Magnesium Iron 14 L TIBC 288 % Saturation 5 L Unsat Iron Binding 274 Total Bilirubin AST ALT Alkaline Phosphatase Troponin I High Sens B-Natriuretic Peptide Total Protein Albumin COVID-19 (EMILY) COVID-19 Clin Com 01/07/22 01/08/22 01/08/22 04:41 06:46 06:46 WBC 16.7 H RBC 4.09 L Hgb 10.6 L Hct 32.4 L MCV 79.2 L MCH 25.9 L MCHC 32.7 RDW 14.5 Plt Count 408 H MPV 9.0 L Immature Gran % (Auto) Neut % (Auto) Lymph % (Auto) [place] % (Auto) Eos % (Auto) Baso % (Auto) Lymph # (Auto) [place] # (Auto) Eos # (Auto) Baso # (Auto) Abs Immat Gran (auto) Absolute Neuts (auto) Absolute Nucleated RBC 0.000 Nucleated RBC % (auto) 0.0 Smear Tech's Comments VBG pH VBG pCO2 VBG pO2 VBG HCO3 VBG O2 Saturation VBG Base Excess Sodium 139 139 Potassium 3.7 3.7 Chloride 110 H 105 Carbon Dioxide 19 L 24 Anion Gap 14 14 BUN 8 L 7 L Creatinine 0.56 0.58 Estim Creat Clear Calc 86.7 83.7 Estimated GFR > 60 > 60 Random Glucose 158 H 88 Lactic Acid Calcium 8.3 L D 8.2 L Magnesium Iron TIBC % Saturation Unsat Iron Binding Total Bilirubin AST ALT Alkaline Phosphatase Troponin I High Sens B-Natriuretic Peptide Total Protein Albumin COVID-19 (EMILY) COVID-19 Clin Com Airway Mallampati Class: II TM Dist: >3cm Neck ROM: Full Denture: Upper and Lower Assessment and Plan Assessment Anesthesia Assessment: Anesthesia Plan Discussed, Smoking Cess. Discussed and Chart Reviewed Final Anesthetic Review Family History of Problems with Anesthesia: No History of Problems with Anesthesia: No NPO: Yes ASA Class: III Final Preanesthetic Review: Meds/Allgs Chart Reviewed, Consent Obtained/Reviewed and Anes Risks/Benef Reviewed Patient Risk: Intermediate Procedure Risk: Intermediate Anesthetic Plan Anesthetic Plan: GA Disposition: Standard PACU
[2022-01-08] MEDS: Albuterol/Iprat 2.5/0.5MG 3 ML AMPUL.NEB INHALE (13:08)
[2022-01-08] MEDS: Lactated Ringers 1,000 ML 100 ML IVCONT (13:23)
--- NOTE | 2022-01-08 14:37 | P.BOP_ITS ---
Brief Operative Note Date of Service: 01/08/22 Pre-op diagnosis: lung cancer Post-op diagnosis: same Procedure: flexible bronchoscopy performed through the endotracheal tube with patient intubated for the procedure. after advancing bronchoscope through the ET tube obstruction right mainstem bronchus with a mass was noted. Bronchoscope was advanced through the left side with tracheobronchial tree with with relation of a normal airways and mucosa. After that forceps biopsies of the endobronchial lesion obstructing right mainstem bronchus was performed with specimens sent for pathology. Minor oozing from the biopsy site was were villavicencio of with saline and no further bleeding was noted. Patient tolerated procedure well and was returned to PACU in stable condition. Surgeon: Long Olivia MD Anesthesia: GETA Was an Account Support Analyst used for this Procedure?: No Estimated blood loss (mL): 0 Pathology: other ( Right mainstem endobronchial mass) Condition: stable Disposition: PACU
[2022-01-08] MEDS: cefTRIAXone sodium 2 GM in 0.9 % Sodium Chloride 50 ML IV (21:38)
[2022-01-08] MEDS: Melatonin 3 MG TABLET 9 MG PO (21:45)
[2022-01-08] MEDS: Azithromycin 500 MG in 0.9 % Sodium Chloride 250 ML 125 MG IV (22:41)
[2022-01-09] VITALS (7 sets, daily range): BP systolic 93–166; BP diastolic 54–92; PULSE 72–98; RESP 17–20; TEMP 33.2–37; O2SAT 93–98
[2022-01-09] MEDS: Lactated Ringers 1,000 ML 100 ML IVCONT (02:01)
[2022-01-09] MEDS: Omeprazole 20 MG CAPSULE.DR PO (04:40)
[2022-01-09 07:48] LABS: Hematocrit 33.6 % (37.0-47.0); Mean Corpuscular HGB Conc 32.7 g/dl (31.0-35.0); Mean Corpuscular Hemoglobin 25.9 pg (27.0-33.0); Mean Corpuscular Volume 79.1 fL (80.0-98.0); Mean Platelet Volume 8.8 fL (9.4-12.3); Platelet Count 422 X10*3/uL (160-400); Red Blood Count 4.25 X10*6/uL (4.20-5.50); Red Cell Distribution Width 14.7 % (11.0-16.0)
[2022-01-09 08:05] LABS: Anion Gap 14 (12-20); Blood Urea Nitrogen 14 mg/dL (9-16); Calcium 8.5 mg/dL (8.4-10.2); Carbon Dioxide 26 mmol/L (22-29); Chloride 106 mmol/L (96-108); Creatinine Clr Calc Pharmacy 72.5; Estimated Glomerular Filt Rate > 60; Glucose Random 118 mg/dL (60-115); Potassium 4.2 mmol/L (3.3-5.1); Sodium 142 mmol/L (135-145)
[2022-01-09] MEDS: Atorvastatin Calcium 80 MG TABLET PO (08:25)
[2022-01-09] MEDS: oxyCODONE HCl ER 10 MG TAB.ER.12H PO ×2 (08:25→22:13)
[2022-01-09] MEDS: Gabapentin 600 MG TABLET PO ×2 (08:25→22:13)
[2022-01-09] MEDS: Ferrous Sulfate 324 MG TABLET.DR PO (08:25)
--- NOTE | 2022-01-09 14:41 | P.PNIM_ITS ---
Subjective Subjective Date of Service: 01/09/22 Interval History: cc: sob interval history:hemotprysis Cardiovascular Cardiovascular: Reports no additional cardiovascular complaints Respiratory Respiratory: Reports no additional respiratory complaints Physical Exam Vital Signs: Vital Signs: Last Vital Signs Temp 97.3 F 01/09/22 08:00 Pulse 90 01/09/22 08:00 Resp 20 01/09/22 08:00 BP 148/74 H 01/09/22 08:00 Pulse Ox 93 01/09/22 13:13 O2 Del Method 01/09/22 13:13 O2 Flow Rate 1 01/09/22 08:00 Oxygen Flow Rate 1 01/09/22 13:13 BMI result Body Mass Index 19.8 General: AO X 3, anxious Resp: diminsihed bilateral, no accessory muscles used CVS: S1,S2,RRR GI: soft, non tender, non distended Neuro: motor grossly intact, alert Psych: appropriate affect, appropriate insight Objective Data Active Medications Acetaminophen (Acetaminophen 325 Mg Tablet) 650 mg PO Q6H PRN PRN Reason: Pain, Mild (Pain Scale 1-3) Acetaminophen/Butalbital/Caffeine (Butalb/Acetamin/Caff 50/325/40 Tablet) 1 tab PO Q6H PRN PRN Reason: Migraine Headache Albuterol Sulfate (Albuterol Sulfate 90 Mcg 8 Gm Inhaler) 2 puff INHALE Q4H PRN PRN Reason: wheezing Albuterol/Ipratropium (Albuterol/Iprat 2.5/0.5mg 3 Ml Ampul.Neb) 3 ml INHALE Q4H PRN PRN Reason: Wheezing Last Admin: 01/08/22 13:08 Dose: 3 ml Documented By: ROCHELLE Atorvastatin Calcium (Atorvastatin Calcium 80 Mg Tablet) 80 mg PO DAILY [facility] Last Admin: 01/09/22 08:25 Dose: 80 mg Documented By: JANI Diazepam (Diazepam 2 Mg Tablet) 2 mg PO TID PRN PRN Reason: anxiety/restlessness Last Admin: 01/08/22 21:45 Dose: 2 mg Documented By: LUCIO Fentanyl (Fentanyl Citrate/Pf 100 Mcg/2 Ml Vial) 25 mcg IVPUSH Q5M PRN; Protocol PRN Reason: Pain, Moderate (Pain Scale 4-6 Ferrous Sulfate (Ferrous Sulfate 324 Mg Tablet.Dr) 324 mg PO DAILY [facility] Last Admin: 01/09/22 08:25 Dose: 324 mg Documented By: JANI Gabapentin (Gabapentin 600 Mg Tablet) 600 mg PO BID [facility] Last Admin: 01/09/22 08:25 Dose: 600 mg Documented By: JANI Hydromorphone HCl (Hydromorphone Hcl 4 Mg Tablet) 4 mg PO BID [facility] Last Admin: 01/09/22 08:26 Dose: 4 mg Documented By: JANI Hydromorphone HCl (Hydromorphone Hcl 1 Mg/Ml Syringe) 1 mg IVPUSH ONCE ONE; Protocol Stop: 01/09/22 14:40 Ceftriaxone Sodium 2 gm/ (Sodium Chloride) 50 mls @ 100 mls/hr IV Q24H [facility] Last Infusion: 01/08/22 22:46 Dose: 0 mls/hr Documented By: LUCIO Azithromycin 500 mg/ Sodium (Chloride) 250 mls @ 125 mls/hr IV Q24H [facility] Last Infusion: 01/09/22 00:58 Dose: 0 mls/hr Documented By: ALYSE Melatonin (Melatonin 3 Mg Tablet) 6 mg PO BEDTIME PRN PRN Reason: Insomnia Last Admin: 01/07/22 22:42 Dose: 6 mg Documented By: MARILU Melatonin (Melatonin 3 Mg Tablet) 9 mg PO BEDTIME PRN PRN Reason: Insomnia Last Admin: 01/08/22 21:45 Dose: 9 mg Documented By: LUCIO Nicotine (Nicotine 14 Mg Patch.Td24) 14 mg TRANSDERMA DAILY [facility] Last Admin: 01/09/22 08:29 Dose: Not Given Documented By: JANI Non-Admin Reason: Patient Refused Omeprazole (Omeprazole 20 Mg Capsule.) 20 mg PO DAILY@0630 [facility] Last Admin: 01/09/22 04:40 Dose: 20 mg Documented By: ALYSE Ondansetron HCl (Ondansetron Hcl 4 Mg/2 Ml Vial) 4 mg IVPUSH Q8H PRN PRN Reason: Nausea and Vomiting Last Admin: 01/06/22 21:57 Dose: 4 mg Documented By: SARANYA Ondansetron HCl (Ondansetron Hcl 4 Mg/2 Ml Vial) 4 mg IVPUSH ONCE PRN PRN Reason: Nausea and Vomiting Oxycodone HCl (Oxycodone Hcl Er 10 Mg Tab.Er.12h) 10 mg PO BID [facility] Last Admin: 01/09/22 08:25 Dose: 10 mg Documented By: JANI Sodium Chloride (0.9 % Sodium Chloride Flush 3 Ml Syringe) 3 ml IVFLUSH QSHIFT [facility] Last Admin: 01/09/22 08:28 Dose: Not Given Documented By: JANI Non-Admin Reason: IV Running Labs CBC & Chem 7: 01/09/22 07:38 01/09/22 07:38 Labs: Laboratory Results - last 24 hr 01/09/22 01/09/22 07:38 07:38 MCV 79.1 L MCH 25.9 L MCHC 32.7 RDW 14.7 Plt Count 422 H MPV 8.8 L Absolute Nucleated RBC 0.000 Nucleated RBC % (auto) 0.0 Anion Gap 14 Estim Creat Clear Calc 72.5 Estimated GFR > 60 Random Glucose 118 H Calcium 8.5 Microbiology Microbiology Results: Microbiology 01/06/22 16:45 Blood Culture - Preliminary Blood - Venous No growth after 48 hours. 01/06/22 16:23 Blood Culture - Preliminary Blood - Venous No growth after 48 hours. Assessment and Plan (1) Postobstructive pneumonia: Status: Acute (2) Acute respiratory failure with hypoxia: Status: Acute (3) Mass of right lung: Status: Acute Plan This is a 61-year-old female with a pertinent history of tobacco use disorder, chronic back pain status post lumbar fusion surgeries, mixed hyperlipidemia, COPD not on home inhalers or home oxygen who presents to the emergency department for evaluation of shortness of breath. Acute hypoxemic respiratory failure 2/2 postobstructive pneumonia 2/2 Right parahilar mass Improving contineu weaning bronchoscopy 01/08/22, prelim SCC Continue IV rocpehin, azithro follow up oncology Chronic back pain continue home gabapentin, Dilaudid and oxycodone Mixed hyperlipidemia continue home statin Tobacco use disorder Advised to quit Start nicotine patch DVT prophylaxis: mechanical ordered due to hemoptysis (patient refused, aware of risk of vte) reason for continued hospitalization:weaning oxygen, iv abx for postobstructive pna, still sob Quality Stroke Does the patient have a stroke diagnosis?: No VTE Prior VTE?: No VTE Risk Level:: Medical - moderate - high VTE Device Contraindication: Treatment Not Indicated VTE Drug Contraindication: N/A - Med Ordered
--- NOTE | 2022-01-09 14:47 | HO.POSTANES ---
Post Anesthesia Evaluation Post Anesthesia Evaluation Vital Signs: Vital Signs Temp Pulse Resp BP Pulse Ox O2 Del Method O2 Flow Rate 01/09/22 13:13 93 Oxymask 01/09/22 08:00 97.3 F 90 20 148/74 H 94 Oxymask 1 Anesthesia: General Mental Status: Awake Pain Control: Satisfactory Nausea/Vomiting: None Hydration: Adequate Anesthesia-Related Issues: No Anes. Related Issues
[2022-01-09] MEDS: diazePAM 2 MG TABLET PO ×2 (14:56→22:14)
[2022-01-09] MEDS: HYDROmorphone HCl 1 MG/ML SYRINGE IVPUSH (15:53)
[2022-01-09] MEDS: 0.9 % Sodium Chloride Flush 3 ML SYRINGE IVFLUSH ×2 (16:00→22:15)
[2022-01-09] MEDS: Melatonin 3 MG TABLET 9 MG PO (22:13)
[2022-01-09] MEDS: cefTRIAXone sodium 2 GM in 0.9 % Sodium Chloride 50 ML IV (22:13)
[2022-01-09] MEDS: Azithromycin 500 MG in 0.9 % Sodium Chloride 250 ML 125 MG IV (23:04)
[2022-01-10 03:43] VITALS: BP 168/90; PULSE 88; RESP 17; TEMP 36.7; O2SAT 94
--- NOTE | 2022-01-10 03:59 | PC.NURSE ---
Pt c/o watery stool 4x started this afternoon, pt claimed she has IBS that flares on intermittently and requesting for some Lomotil, Dr. Kim was made aware, ordered to do GI panel , pt was updated, awaiting for stool samples.
[2022-01-10] MEDS: Omeprazole 20 MG CAPSULE.DR PO (05:35)
[2022-01-10 07:08] LABS: Hemoglobin 11.3 g/dl (12.0-16.0); Mean Corpuscular HGB Conc 32.3 g/dl (31.0-35.0); Mean Corpuscular Hemoglobin 25.5 pg (27.0-33.0); Mean Platelet Volume 8.7 fL (9.4-12.3); Platelet Count 437 X10*3/uL (160-400); Red Blood Count 4.43 X10*6/uL (4.20-5.50); Red Cell Distribution Width 14.6 % (11.0-16.0); White Blood Count 9.3 X10*3/uL (4.8-10.8)
[2022-01-10 07:12] VITALS: BP 138/79; PULSE 94; RESP 16; TEMP 36.6; O2SAT 96
[2022-01-10 07:34] LABS: Anion Gap 16 (12-20); Blood Urea Nitrogen 7 mg/dL (9-16); Calcium 8.4 mg/dL (8.4-10.2); Carbon Dioxide 25 mmol/L (22-29); Chloride 102 mmol/L (96-108); Creatinine Clr Calc Pharmacy 74.7; Estimated Glomerular Filt Rate > 60; Glucose Fasting 79 mg/dL (60-99); Potassium 3.5 mmol/L (3.3-5.1); Sodium 139 mmol/L (135-145)
[2022-01-10] MEDS: Gabapentin 600 MG TABLET PO (08:08)
[2022-01-10] MEDS: 0.9 % Sodium Chloride Flush 3 ML SYRINGE IVFLUSH (08:08)
[2022-01-10] MEDS: diazePAM 2 MG TABLET PO ×2 (08:10→15:48)
[2022-01-10] MEDS: Atorvastatin Calcium 80 MG TABLET PO (08:10)
[2022-01-10] MEDS: Ferrous Sulfate 324 MG TABLET.DR PO (08:11)
[2022-01-10] MEDS: oxyCODONE HCl ER 10 MG TAB.ER.12H PO (08:11)
[2022-01-10 08:46] LABS: Leukocytes Stool Qualitative FEW: < 2/OIF (NEGATIVE)
--- NOTE | 2022-01-10 10:04 | P.DS_ITS ---
DS: Providers Provider Date of Service: 01/10/22 Date of admission: 01/06/22 19:23 Primary care physician: Jakob Peralta MD Consults: 01/06/22 19:33 Consult to Pulmonology Routine Consulting Provider: Andrey King Reason for consultation: right parahilar mass Has provider been notified: No 01/09/22 12:45 Consult to Hematology / Oncology Routine Consulting Provider: Nalini Ibarra Reason for consultation: squamous cell lung DS: Diagnosis Discharge Diagnosis (1) Postobstructive pneumonia: Status: Acute (2) Acute respiratory failure with hypoxia: Status: Acute (3) Mass of right lung: Status: Acute DS: Summary Hospital Course Hospital Course: from initial hpi: This is a 61-year-old female with a pertinent history of tobacco use disorder, chronic back pain status post lumbar fusion surgeries, mixed hyperlipidemia, COPD not on home inhalers or home oxygen who presents to the emergency [facility] for evaluation of shortness of breath.? Patient states she started having progressively worsening shortness of breath 3 days prior to presentation.? She does not ambulate and uses an electric wheelchair due to chronic back pain.? No orthopnea, PND or leg swelling.? Does have questionable history of CHF and was prescribed Lasix but does not take it.? States the shortness of breath was without any relieving factors.? Also had associated chills.? Patient denies chest discomfort, palpitations, abdominal pain, headache, changes in urinary or bowel habits.? States she has been smoking half a pack of cigarettes since age of 18.? Has never been hospitalized for dyspnea as per the patient.? Did have benign tumor of the uterus and has had hysterectomy.? No other personal history of cancer, has never received chemotherapy or radiation. In the emergency department, patient was found to be febrile 100.4 [address] CT scan was concerning for right parahilar mass and hospitalist group consulted for admission hospital course: Patient was admitted for acute hypoxic respiratory failure secondary to postobstructive pneumonia(no evidence of sepsis) due to right perihilar mass. She was treated with IV ceftriaxone azithromycin. She was weaned off oxygen. She was seen by Pulmonary performed bronchoscopy, preliminary pathology shows squamous cell carcinoma. She will be discharged on 5 more days of Ceftin and azithromycin. She will follow-up with Oncology. For chronic back pain she was continued on gabapentin, Dilaudid, oxycodone. For hyperlipidemia she was continued on statin. For tobacco use disorder she was given nicotine replacement. Time Spent with Patient Time attestation: Total time spent providing and/or coordinating discharge services: Discharge coordination time: Greater than 30 minutes Quality: Safe Use of Opioids Does Pt have an Active Cancer Diagnosis on the Problem List?: Yes Opioid Measure Date for [facility] Report: 12/11/21 Opioid Measure Time for [facility] Report: 10:04 Quality: Stroke Does the patient have a stroke diagnosis?: No Physical Exam Vital Signs: Vital Signs: Last Vital Signs Temp 97.8 F 01/10/22 07:12 Pulse 94 01/10/22 07:12 Resp 16 01/10/22 07:12 BP 138/79 01/10/22 07:12 Pulse Ox 96 01/10/22 07:12 O2 Del Method 01/10/22 07:12 O2 Flow Rate 1 01/09/22 08:00 Oxygen Flow Rate 1 01/09/22 13:13 BMI result Body Mass Index 19.8 General: AO X 3, anxious Resp: diminsihed bilateral, no accessory muscles used CVS: S1,S2,RRR GI: soft, non tender, non distended Neuro: motor grossly intact, alert Psych: appropriate affect, appropriate insight DS: Data Data Completed and Pending Pending studies at discharge: Pending at discharge 01/08/22 14:26 Surgical [PTH] Routine Labs on day of discharge: Laboratory Results - last 24 hr 01/10/22 01/10/22 01/10/22 06:15 06:15 07:25 WBC 9.3 RBC 4.43 Hgb 11.3 L Hct 35.0 L MCV 79.0 L MCH 25.5 L MCHC 32.3 RDW 14.6 Plt Count 437 H MPV 8.7 L Absolute Nucleated RBC 0.000 Nucleated RBC % (auto) 0.0 Sodium 139 Potassium 3.5 Chloride 102 Carbon Dioxide 25 Anion Gap 16 BUN 7 L Creatinine 0.65 Estim Creat Clear Calc 74.7 Estimated GFR > 60 Fasting Glucose 79 Calcium 8.4 Stool Leukocytes, Qual FEW: < 2/OIF Preliminary micro results at discharge 01/06/22 16:45 Blood Culture - Preliminary Blood - Venous No growth after 48 hours. 01/06/22 16:23 Blood Culture - Preliminary Blood - Venous No growth after 48 hours. Discharge Plan Discharge Anticipated Discharge Date/Time: 01/10/22 13:00 Patient Disposition: Home, Self-Care Discharge Diagnosis: SCC lung, post obstructive pna Referrals: Jakob Peralta MD [Primary Care Provider] - 1 Week Nalini Ibarra MD [Physician] - 1 Week Discharge Medications: New ferrous sulfate 324 mg (65 mg iron) Tablet,Delayed Release (Dr/Ec) 324 mg PO DAILY Qty: 30 0RF cefuroxime axetil 500 mg tablet 500 mg PO BID Qty: 10 0RF azithromycin 500 mg tablet 500 mg PO DAILY 5 Days Qty: 5 0RF Continued hydromorphone 4 mg tablet 4 mg PO BID oxycodone [OxyContin] 10 mg tablet,oral only,ext.rel.12 hr 1 tab PO BID atorvastatin 80 mg tablet 1 tab PO DAILY yvkmzepdje-ajfrnstqzgajt-eupp 50-325-40 mg tablet 1 tab PO Q6H PRN (Reason: Migraine Headache) omeprazole 20 mg capsule,delayed release(DR/EC) 1 cap PO DAILY albuterol sulfate [ProAir HFA] 90 mcg/actuation HFA aerosol inhaler 2 puff INHALATION Q4H PRN (Reason: wheezing) melatonin 10 mg Tablet 10 mg PO BEDTIME PRN (Reason: Insomnia) Diet: Advance to usual diet Activity on Discharge: As tolerated Stand Alone Forms: Patient Portal Discharge page Care Plan Goals: manage lung cancer Health Concerns: pna, lung cancer Plan of Treatment: valdo barbosa, follow up with oncology Assessment: see above
[2022-01-10 10:57] LABS: CDiff Gene PCR NEGATIVE (Negative)
[2022-01-10 11:17] VITALS: BP 138/82; PULSE 100; RESP 18; TEMP 36.1; O2SAT 98
[2022-01-10] MEDS: Diphenoxylate/Atrop 2.5/0.025 TABLET 1 TAB PO (11:37)
[2022-01-10 12:34] VITALS: O2SAT 95
--- NOTE | 2022-01-10 13:02 | P.CNHO_ITS ---
Subjective - Subjective Chief complaint: Consult for: Lung cancer. Patient: new to practice Consult date: 01/10/22 Requesting Physician: Kranthi. Primary Care Provider: Jakob Ferrara MD Medical Summary: DIAGNOSIS: Squamous cell carcinoma the lung. HPI - Consult Narrative Reason for consult: Consult for: Squamous cell carcinoma of the lung. Narrative: Bhavya Paiz is a pleasant 61 year old lady, who presented with Shortness of breath. Patient stated she started having progressively worsening shortness of breath 3 days prior to presentation. She does not ambulate and uses an electric wheelchair due to chronic back pain. No orthopnea, PND or leg swelling. Does have questionable history of CHF and was prescribed Lasix but does not take it. States the shortness of breath was without any relieving factors. Also had associated chills. Patient denies chest discomfort, palpitations, abdominal pain, headache, changes in urinary or bowel habits. States she has been smoking half a pack of cigarettes since age of 18. Has never been hospitalized for dyspnea as per the patient. Did have benign tumor of the uterus and has had hysterectomy. No other personal history of cancer, has never received chemotherapy or radiation. In the emergency department, patient was found to be febrile 100.[address] scan was concerning for right parahilar mass and hospitalist group consulted for admission Patient was admitted for acute hypoxic respiratory failure secondary to postobstructive pneumonia(no evidence of sepsis) due to right perihilar mass. She was treated with IV ceftriaxone azithromycin. She was weaned off oxygen. She was seen by Pulmonary performed bronchoscopy, preliminary pathology shows squamous cell carcinoma. She will be discharged on 5 more days of Ceftin and azithromycin. She will follow-up with Oncology. For chronic back pain she was continued on gabapentin, Dilaudid, oxycodone. For hyperlipidemia she was continued on statin. For tobacco use disorder she was given nicotine replacement. Review of Systems: Review of Systems: All 13 review of systems are negative except as noted in HPI: She had a fever of 104 degrees. Her energy level was okay till Friday. Then her legs get started getting weak and shaky. Denies headache no dizziness. She had chest pain. She could not breathe. Was diagnosed with pneumonia. She complained of nausea. She has IBS. She has diarrhea alternating with constipation. She has had chronic back pain. She has history of arthritis. She has sciatica, left leg weakness. She is wheelchair-bound. She has anxiety. [facility] Medical History pertinent history of tobacco use disorder, chronic back pain status post lumbar fusion surgeries, mixed hyperlipidemia, COPD not on home inhalers or home oxygen who presents to the emergency department for evaluation of shortness of breath. Chronic back pain High cholesterol Hyperlipidemia Tobacco use Crate Tier history: Patient : No Surgical History: H/O: hysterectomy History of lumbar fusion FAMILY HISTORY; Sister diagnosed with breast cancer in her 40s. Mom of metastatic lung cancer. Social History: She worked for [employer]. She is not . She has 1 daughter. Functional capacity: wheelchair bound. Patient Tobacco Use Status: Started smoking at the age of 18. Current everyday Tobacco user. Currently smoking 10 cigarettes a day. Smoked in Last 30 Days: Yes Use of substances other than those prescribed or required for medical reasons: No Review of Systems - Neurologic Denies memory loss, Denies seizure-like activity [facility] Medical History: Medical History (Last Reviewed 01/06/22 @ 19:35 by Farhad Sanchez MD) Chronic back pain High cholesterol Hyperlipidemia Tobacco use Functional capacity: wheelchair bound Surgical History: Surgical History (Last Reviewed 01/06/22 @ 19:35 by Farhad Sanchez MD) H/O: hysterectomy History of lumbar fusion Social History: Social History (Last Reviewed 01/06/22 @ 19:35 by Farhad Sanchez MD) Living Situation History: Household Members: None Housing: House Do you presently have visiting nurse or other home services: Yes Tobacco History: Patient Tobacco Use Status: Former Tobacco user Tobacco use type: Cigarette Years Smoked: 30 Smoke Quit Date: 12/30/2021 Occupation Assessmet: service: No Current occupational status: disabled - Travel History Ebola Risk: Travel/Contact With Anyone From Affected Area/s: No Has Patient Experienced Ebola Symptoms: No Home Medications and Allergies Current Medications: Current Medications Acetaminophen (Acetaminophen 325 Mg Tablet) 650 mg PO Q6H PRN PRN Reason: Pain, Mild (Pain Scale 1-3) Acetaminophen/Butalbital/Caffeine (Butalb/Acetamin/Caff 50/325/40 Tablet) 1 tab PO Q6H PRN PRN Reason: Migraine Headache Albuterol Sulfate (Albuterol Sulfate 90 Mcg 8 Gm Inhaler) 2 puff INHALE Q4H PRN PRN Reason: wheezing Albuterol/Ipratropium (Albuterol/Iprat 2.5/0.5mg 3 Ml Ampul.Neb) 3 ml INHALE Q4H PRN PRN Reason: Wheezing Last Admin: 01/08/22 13:08 Dose: 3 ml Atorvastatin Calcium (Atorvastatin Calcium 80 Mg Tablet) 80 mg PO DAILY [facility] Last Admin: 01/10/22 08:10 Dose: 80 mg Diazepam (Diazepam 2 Mg Tablet) 2 mg PO TID PRN PRN Reason: anxiety/restlessness Last Admin: 01/10/22 08:10 Dose: 2 mg Diphenoxylate HCl/Atropine (Diphenoxylate/Atrop 2.5/0.025 Tablet) 1 tab PO QID PRN PRN Reason: diarrhea Last Admin: 01/10/22 11:37 Dose: 1 tab Fentanyl (Fentanyl Citrate/Pf 100 Mcg/2 Ml Vial) 25 mcg IVPUSH Q5M PRN; Protocol PRN Reason: Pain, Moderate (Pain Scale 4-6 Ferrous Sulfate (Ferrous Sulfate 324 Mg Tablet.) 324 mg PO DAILY [facility] Last Admin: 01/10/22 08:11 Dose: 324 mg Gabapentin (Gabapentin 600 Mg Tablet) 600 mg PO BID [facility] Last Admin: 01/10/22 08:08 Dose: 600 mg Hydromorphone HCl (Hydromorphone Hcl 4 Mg Tablet) 4 mg PO BID [facility] Last Admin: 01/10/22 08:10 Dose: 4 mg Ceftriaxone Sodium 2 gm/ (Sodium Chloride) 50 mls @ 100 mls/hr IV Q24H [facility] Last Infusion: 01/09/22 23:20 Dose: Infused Azithromycin 500 mg/ Sodium (Chloride) 250 mls @ 125 mls/hr IV Q24H [facility] Last Infusion: 01/10/22 01:40 Dose: Infused Melatonin (Melatonin 3 Mg Tablet) 6 mg PO BEDTIME PRN PRN Reason: Insomnia Last Admin: 01/07/22 22:42 Dose: 6 mg Melatonin (Melatonin 3 Mg Tablet) 9 mg PO BEDTIME PRN PRN Reason: Insomnia Last Admin: 01/09/22 22:13 Dose: 9 mg Nicotine (Nicotine 14 Mg Patch.Td24) 14 mg TRANSDERMA DAILY [facility] Last Admin: 01/10/22 08:14 Dose: Not Given Omeprazole (Omeprazole 20 Mg Capsule.Dr) 20 mg PO DAILY@0630 [facility] Last Admin: 01/10/22 05:35 Dose: 20 mg Ondansetron HCl (Ondansetron Hcl 4 Mg/2 Ml Vial) 4 mg IVPUSH Q8H PRN PRN Reason: Nausea and Vomiting Last Admin: 01/06/22 21:57 Dose: 4 mg Ondansetron HCl (Ondansetron Hcl 4 Mg/2 Ml Vial) 4 mg IVPUSH ONCE PRN PRN Reason: Nausea and Vomiting Oxycodone HCl (Oxycodone Hcl Er 10 Mg Tab.Er.12h) 10 mg PO BID [facility] Last Admin: 01/10/22 08:11 Dose: 10 mg Sodium Chloride (0.9 % Sodium Chloride Flush 3 Ml Syringe) 3 ml IVFLUSH QSHIFT [facility] Last Admin: 01/10/22 08:08 Dose: 3 ml Home Medications Medication Instructions Recorded Confirmed Type albuterol sulfate 90 mcg/actuation 2 puff inhalation Q4H PRN wheezing 01/07/22 01/07/22 History aerosol inhaler (ProAir HFA) atorvastatin 80 mg tablet 1 tab PO DAILY 01/07/22 01/07/22 History rzedospgim-hyhgoekhoutjw-jxykpbcp 1 tab PO Q6H PRN Migraine Headache 01/07/22 01/07/22 History 50 mg-325 mg-40 mg tablet hydromorphone 4 mg tablet 4 mg PO BID 01/07/22 01/07/22 History melatonin 10 mg tablet 10 mg PO BEDTIME PRN Insomnia 01/07/22 01/07/22 History omeprazole 20 mg capsule,delayed 1 cap PO DAILY 01/07/22 01/07/22 History release oxycodone 10 mg tablet,crush 1 tab PO BID 01/07/22 01/07/22 History resistant,extended release 12 hr (OxyContin) Allergies Allergy/AdvReac Type Severity Reaction Status Date / Time cyclobenzaprine Allergy Severe Difficulty Verified 01/09/22 09:07 [From Flexeril] Breathing prochlorperazine Allergy Severe Difficulty Verified 01/09/22 09:07 [From Compazine] Breathing acetaminophen Allergy Unknown Swelling Verified 01/08/22 12:46 [Tylenol-Codeine #3] codeine [CODEINE] Allergy Unknown RASH Verified 01/08/22 12:46 Fish Containing Products Allergy Unknown SWELLING Verified 01/08/22 12:46 lorazepam [From ATIVAN] Allergy Unknown SWELLING Verified 01/08/22 12:46 meperidine [From DEMEROL] Allergy Unknown SWELLING Verified 01/08/22 12:46 diphenhydramine Allergy Swelling Verified 01/08/22 12:46 [From Benadryl] Physical Exam Vital signs: Vital Signs Temp 96.9 F 01/10/22 11:17 Pulse 100 01/10/22 11:17 Resp 18 01/10/22 11:17 BP 138/82 01/10/22 11:17 Pulse Ox 95 01/10/22 12:34 O2 Del Method 01/10/22 12:34 O2 Flow Rate 1 01/09/22 08:00 Intake & Output 01/09/22 01/10/22 01/10/22 18:59 06:59 18:59 Intake Total 1240.000 / 1730.000 490 / 1730.000 Balance 1240.000 / 1730.000 490 / 1730.000 Intake: Intake, Oral Amount 240 / 480 240 / 480 Intake, IV Amount 1000.000 / 1250.000 250 / 1250.000 Azithromycin 500 mg In 0.9 % 250 / 250 Sodium Chloride 250 ml @ 125 mls/hr IV Q24H [facility] Rx#: [id number] cefTRIAXone sodium 2 gm In 0.9 0 / 0 % Sodium Chloride 50 ml @ 100 mls/hr IV Q24H [facility] Rx#: [id number] Lactated Ringers 1,000 ml @ 100 1000.000 / 1000.000 mls/hr IVCONT .Q10H [facility] Rx#: [id number] Other: Meal Refused No NPO No Breakfast % Eaten 25% Lunch % Eaten 25% Dinner % Eaten 25% Number of Unmeasured Voids 3 3 Number of Bowel Movements 1 Urine Bedside Commode Bedside Commode Urine Color Yellow Last Bowel Movement 01/09/22 01/10/22 01/10/22 Stool Bathroom Bedside Commode Stool Amount Moderate Small Stool Color Dark Brown Stool Consistency Loose Loose Weight 50.802 kg Hem/Onc Consult Result - Labs CBC & Chem 7: 01/10/22 06:15 01/10/22 06:15 Labs: Short CBC 01/10/22 Range/Units 06:15 WBC 9.3 (4.8-10.8) X10*3/uL Hgb 11.3 L (12.0-16.0) g/dl Hct 35.0 L (37.0-47.0) % Plt Count 437 H (160-400) X10*3/uL [facility] 01/10/22 06:15 Sodium 139 Potassium 3.5 Chloride 102 Carbon Dioxide 25 BUN 7 L Creatinine 0.65 Calcium 8.4 Assessment and Plan Patient Active problem list reviewed?: Yes (1) Squamous cell carcinoma of left lung Status: Acute Assessment and plan: This is a 61-year-old lady with a long history of smoking. She presented with high fever and inability to breathe. CT scan of the chest from 01/06 revealed: 1. No CT evidence of pulmonary emboli. 2. Right parahilar mass, compressing on the adjacent bronchus causing atelectasis of right upper lobe. The consolidation extending from the right hilum to the pleural surface right lung apex. This is suspicious for underlying neoplasm, given its central position, would be amenable for transbronchial biopsy for definitive diagnosis, PET/CT could be utilized.. 3. Adjacent right hilar and mediastinal lymphadenopathy. 4. Adjacent right upper and lower lobe patchy infiltrates, could be superimposed infection pneumonia versus lymphangitic spread. 5. Diffuse moderate to severe delaney lobar pulmonary disease edema. She underwent a transbronchial biopsy. Pathology revealed: Squamous cell carcinoma moderate to poorly differentiated. PDL1 pending. Scant specimen. I discussed the above findings with the patient and her family. Did address that for further staging we would need to proceed with a PET scan. This can only be done as an outpatient. PLAN: Will arrange for a PET scan as an outpatient. Will wait for the final molecular testing on the tumor tissue. Will make further plans based upon the above results. All her and her family's questions were answered to their satisfaction. Patient is ready to go home today. I will see her as an outpatient and advise further. Thank you for the consult, CC: Dr. Jakob ferrara. - Time Spent With Patient Time Spent with Patient (in minutes): 35
--- NOTE | 2022-01-10 14:25 | MHC.CM.PN ---
PATIENT IS DC HOME TODAY. NO SERVICES NEEDED. RN AWARE OF PLAN
--- NOTE | 2022-01-10 14:26 | MHC.CM.PN ---
PT BEING DISCHARGED HOME TODAY WITH NO SERVICES PT WILL ARRANGE TRANSPORT
--- NOTE | 2022-01-10 15:28 | MHC.CM.PN ---
CM MET WITH PT AND FAMILY ON REQUEST THEY REPORT THE PTS DAUGHTER, COLLINS WOULD LIKE TO BE PRESENT WHEN THEY SPEAK WITH ONCOLOGY THEY CALLED COLLINS WHO REPORTED SHE WOULD BE BEDSIDE IN [id number] CM MESSAGED ONCOLOGISTS WHO CONFIRMED SHE WOULD COME TO SEE PT AND FAMILY AT THAT TIME
[2022-01-10 15:47] VITALS: BP 144/70; PULSE 98; RESP 18; TEMP 36.4; O2SAT 99
[2022-01-10] MEDS: Butalb/Acetamin/Caff 50/325/40 TABLET 1 TAB PO (15:50)
== END 2022-01-10 16:19 | disposition home or self-care (01) | DRG 136 ==
LOC: HO.ED 19:35 → HO.EDOVER 19:51 → HO.S3 01-09 13:45
PROVIDERS: Hospitalist; Internal Medicine Pulmonary Disease; Pathology Anatomic Pathology & Clinical Pathology; Student in an Organized Health Care Education/Training Program; Admitting Provider Student in an Organized Health Care Education/Training Program; Emergency Provider Student in an Organized Health Care Education/Training Program; PCP Internal Medicine; Visit Provider Internal Medicine
PROC: 0BJ08ZZ Inspection of Tracheobronchial Tree, Via Natural or Artificial Opening Endoscopic (ICD-10-PCS; CPT 31622; principal; 2022-01-08 13:30)
DX: C34.01 Malignant neoplasm of right main bronchus (principal); J96.01 Acute respiratory failure with hypoxia; J18.9 Pneumonia, unspecified organism; E78.2 Mixed hyperlipidemia; F17.210 Nicotine dependence, cigarettes, uncomplicated; Z71.6 Tobacco abuse counseling; J98.11 Atelectasis; G89.29 Other chronic pain; Z98.1 Arthrodesis status; Z20.822 Contact with and (suspected) exposure to COVID-19; Z91.14 Patient's other noncompliance with medication regimen; Z88.5 Allergy status to narcotic agent; Z88.6 Allergy status to analgesic agent; Z88.8 Allergy status to other drugs, medicaments and biological substances; Z79.899 Other long term (current) drug therapy
CPT/HCPCS: 36415; 70460; 71045; 71275; 74177; 80048; 80053; 82803; 83540; 83605; 83735; 83880; 84484; 85025; 85027; 87040; 87493; 87635; 88305; 88341; 88342; 88360; 89055; 93005; 96361; 96374; 96375; 99285; J0456; J0696; J1100; J1170; J1650; J2250; J2405; J2543; J2930; J3010; Q9967